=== PATIENT | female | born 1940 | race Caucasian/White ===

== ENCOUNTER → 2018-06-02 11:12 | Outpatient (CLI) | payer OTHER, SELFPAY ==
--- NOTE | 2018-06-02 | DI.MG.S_ITS ---
BILATERAL DIGITAL SCREENING MAMMOGRAM 3D/2D WITH CAD: 06/02/2018 CLINICAL: Routine screening. Comparison is made to exams dated: 04/27/2017 mammogram, 04/25/2016 mammogram, and 02/19/2015 mammogram - [facility]. The tissue of both breasts is heterogeneously dense. This may lower the sensitivity of mammography. Current study was also evaluated with a Computer Aided Detection (CAD) system. No significant masses, calcifications, or other findings are seen in either breast. There has been no significant interval change. IMPRESSION: NEGATIVE There is no mammographic evidence of malignancy. A 1 year screening mammogram is recommended. This exam was interpreted at Station ID: [id number]. NOTE: For mammograms, a report in lay terms will be sent to the patient. Approximately 15% of breast malignancies will not be visualized mammographically. In the management of a palpable breast mass, a negative mammogram must not discourage biopsy of a clinically suspicious lesion. Electronically Signed By: Hernan gonzales/dm:06/02/2018 19:35:14 letter sent: Normal Exam ACR BI-RADS Category 1: Negative 3341F
== END ==
PROVIDERS: Visit Provider Internal Medicine
DX: Z12.31 Encounter for screening mammogram for malignant neoplasm of breast (principal)
CPT/HCPCS: 77063; 77067

== ENCOUNTER → 2018-06-17 09:36 | Outpatient (CLI) | payer OTHER, SELFPAY ==
[2018-06-17 10:55] LABS: Alanine Aminotransferase 27 IU/L (9-52); Albumin 4.1 g/dL (3.5-5.0); Albumin Globulin Ratio 1.4 (1.0-2.8); Alkaline Phosphatase 67 U/L (38-126); Aspartate Aminotransferase 31 IU/L (14-36); Bilirubin Total 0.6 mg/dL (0.2-1.3); Blood Urea Nitrogen 18 mg/dL (7-17); Calcium 9.5 mg/dL (8.4-10.2); Carbon Dioxide 29 mmol/L (22-32); Chloride 104 mmol/L (98-107); Estimated Glomerular Filt Rate 53.9 mL/min (>60); Globulin 2.9 g/dL (1.7-4.1); Glucose 96 mg/dL (80-110); HEMOLYSIS < 15 (0-50); Magnesium 1.8 mg/dL (1.6-2.3); Potassium 4.2 mmol/L (3.4-5.1); Sodium 144 mmol/L (137-145)
[2018-06-21 08:56] LABS: Lipoprofile NMR SEE SEPARATE REPORTS
== END ==
PROVIDERS: Visit Provider Specialist
DX: E78.2 Mixed hyperlipidemia (principal); I47.1 Supraventricular tachycardia
CPT/HCPCS: 36415; 80053; 83704; 83735

== ENCOUNTER → 2019-01-25 13:34 | Outpatient (CLI) | payer MEDICARE, SELFPAY | PROVIDERS: PCP Internal Medicine; Visit Provider Internal Medicine | DX: M85.831 Other specified disorders of bone density and structure, right forearm (principal); Z78.0 Asymptomatic menopausal state; Z90.722 Acquired absence of ovaries, bilateral; R29.890 Loss of height | CPT/HCPCS: 77080 ==

== ENCOUNTER → 2019-03-14 09:02 | Outpatient (CLI) | payer MEDICARE, SELFPAY ==
--- NOTE | 2019-03-14 | DI.ECHO.S_ITS ---
[place] +---------+ [facility] +---------+ : : [address] : [address] : : : : [id number] : : : : Phone: [phone] +---------+ Echocardiogram Report + + :Name: JAIRO FARMER Study Date: 03/14/2019 Height: 63 in : :[facility] Weight: 121 lb : : Gender: Female BSA: 1.6 m2 : :: 1940 Age: 78 yrs BP: 130/76 mmHg: :Reason For Study: Mitral Valve- Regurgitation : : Performed By: Paula Benjamin : :Referring: LUIS CEDILLO : + + Interpretation Summary Left ventricular systolic function is normal without focal wall motion abnormalities with the ejection fraction visually estimated to be 60-65%. Left ventricular size is at the upper limits of normal but is unchanged compared to the previous study. There has been no significant change since the previous study. The right ventricle is normal in size and function and appears unchanged compared to the previous study. The right ventricular systolic pressure is estimated to be at least 29 mmHg based on an estimated right atrial pressure of 3 mm Hg. Comparison with the previous study is not possible because this was unable to be assessed on the previous study. The left atrium is severely dilated and the right atrium is borderline dilated. Both atria have mildly increased in size since the prior echo exam. The mitral valve leaflets appear moderately thickened with a flat closure plane and borderline bileaflet mitral valve prolapse with probable moderate to severe mitral regurgitation that appears unchanged compared to the previous study. There is mild tricuspid regurgitation that is slightly more prominent compared to the previous study. There is no other significant valvular heart disease. The ascending aorta is mildly enlarged and measures slightly larger compared to the previous study. Procedure: A two-dimensional transthoracic echocardiogram with color flow and Doppler was performed. The study quality was technically good. Comparison is made with the echocardiogram of 10-16-17. The patient was in normal sinus rhythm during the exam. Left Ventricle: Left ventricular size is at the upper limits of normal. This is unchanged compared to the previous study. Left ventricular wall thickness is normal. Left ventricular systolic function is normal without focal wall motion abnormalities. The ejection fraction is estimated to be 60-65%. Diastolic function could not be accurately assessed due to unobtainable data. There has been no significant change since the previous study. Right Ventricle: The right ventricle is normal in size and function. This is unchanged compared to the previous study. Atria: The left atrium is severely dilated. Both atria have mildly increased in size since the prior echo exam. The right atrium is borderline dilated. The interatrial septum is intact with no evidence for an atrial septal defect. Mitral Valve: The mitral valve leaflets appear moderately thickened, but open well. There is a flat closure plane of the the mitral valve leaflets. There is borderline mitral valve prolapse. There is moderate to severe mitral regurgitation. This is unchanged compared to the previous study. Aortic Valve: The aortic valve is trileaflet. The aortic valve opens well. No aortic regurgitation is present. Tricuspid Valve: The tricuspid valve leaflets are thin and pliable. There is mild tricuspid regurgitation. This is slightly more prominent compared to the previous study. The right ventricular systolic pressure is estimated to be at least 29 mmHg based on an estimated right atrial pressure of 3 mm Hg. Comparison with the previous study is not possible because this was unable to be assessed on the previous study. Pulmonic Valve: The pulmonic valve is normal in structure and function. There is trace pulmonic regurgitation. There is no other significant valvular heart disease. Great Vessels: The aortic root is normal size. The ascending aorta is mildly enlarged. This is slightly larger compared to the previous study. The aortic arch is normal in size. The IVC is of normal diameter and collapses greater than 50% with a sniff. This suggests a low right atrial pressure of 3 mm Hg. Pericardium/ Pleura There is no pericardial effusion. There is no pleural effusion. MMode/2D Measurements & Calculations LVIDd: 5.4 cm Ao root diam: 3.3 cm LVIDs: 3.8 cm Aortic Jxn: 2.6 cm FS: 30.2 % asc Aorta Diam: 3.6 cm EPSS: 0.78 cm Ao Arch Diam (Prox Trans): 2.6 cm IVSd: 0.95 cm LVPWd: 0.94 cm LV sevilla. diameter/BSA (cm/m^2): 3.5 LV sys. diameter/BSA (cm/m^2): 2.4 LA dimension: 4.7 cm RA long axis: 5.4 cm LA A2 area: 33.3 cm2 RA area: 17.6 cm2 LA A4 area: 34.4 cm2 RA vol: 48.5 ml LA length (vol): 7.2 cm RA : 31.1 ml/m2 LA vol: 134.9 ml IVC diam: 1.3 cm LA vol index: 86.3 ml/m2 RVDd major: 5.7 cm RVD1 (basal): 2.7 cm RVD2 (mid): 2.7 cm Doppler Measurements & Calculations Ao V2 max: 207.4 cm/sec Med Peak E' Prince: 5.1 cm/sec Ao V2 mean: 113.9 cm/sec Lat Peak E' Prince: 4.7 cm/sec Ao max P.2 mmHg MR ERO: 0.27 cm2 Ao mean P.6 mmHg Ao V2 VTI: 34.7 cm TR max prince: 254.0 cm/sec MR flow rate: 156.3 cm3/sec TR max P.8 mmHg MR PISA radius: 0.80 cm PA V2 max: 57.5 cm/sec PA V2 mean: 36.7 cm/sec PA mean P.66 mmHg PA Accel Time: 0.09 sec Reading Physician:CRISSY
== END ==
PROVIDERS: PCP Internal Medicine; Visit Provider Specialist
DX: I08.1 Rheumatic disorders of both mitral and tricuspid valves (principal); I77.89 Other specified disorders of arteries and arterioles
CPT/HCPCS: 93306

== ENCOUNTER → 2019-03-25 07:30 | Outpatient (CLI) | payer MEDICARE, SELFPAY ==
[2019-03-25 08:59] LABS: Alanine Aminotransferase 16 IU/L (9-52); Albumin 4.2 g/dL (3.5-5.0); Albumin Globulin Ratio 1.4 (1.0-2.8); Alkaline Phosphatase 70 U/L (38-126); Aspartate Aminotransferase 30 IU/L (14-36); BUN Creatinine Ratio 23.8 (6-22); Bilirubin Total 0.6 mg/dL (0.2-1.3); Blood Urea Nitrogen 19 mg/dL (7-17); Calcium 9.7 mg/dL (8.4-10.2); Carbon Dioxide 30 mmol/L (22-32); Chloride 102 mmol/L (98-107); Estimated Glomerular Filt Rate > 60.0 mL/min (>60); Glucose 91 mg/dL (80-110); HEMOLYSIS < 15 (0-50); Sodium 139 mmol/L (137-145); Total Protein 7.2 g/dL (6.3-8.2)
[2019-03-28 11:29] LABS: Lipoprofile NMR SEE SEPERATE REPORT
== END ==
PROVIDERS: PCP Internal Medicine; Visit Provider Specialist
DX: E78.2 Mixed hyperlipidemia (principal)
CPT/HCPCS: 36415; 80053; 83704

== ENCOUNTER → 2019-06-10 10:54 | Outpatient (CLI) | payer MEDICARE, SELFPAY ==
--- NOTE | 2019-06-10 | DI.MG.S_ITS ---
BILATERAL DIGITAL SCREENING MAMMOGRAM 3D/2D WITH CAD: 06/10/2019 CLINICAL: Routine screening. Comparison is made to exams dated: 06/02/2018 mammogram, 04/27/2017 mammogram, 04/25/2016 mammogram, 02/19/2015 mammogram, 01/27/2014 mammogram, and 01/26/2013 mammogram - [facility]. The tissue of both breasts is heterogeneously dense. This may lower the sensitivity of mammography. Current study was also evaluated with a Computer Aided Detection (CAD) system. No significant masses, calcifications, or other findings are seen in either breast. There has been no significant interval change. IMPRESSION: NEGATIVE There is no mammographic evidence of malignancy. A 1 year screening mammogram is recommended. This exam was interpreted at Station ID: [id number]. NOTE: For mammograms, a report in lay terms will be sent to the patient. Approximately 15% of breast malignancies will not be visualized mammographically. In the management of a palpable breast mass, a negative mammogram must not discourage biopsy of a clinically suspicious lesion. Electronically Signed By: Kar bronson/dm:06/10/2019 12:19:34 letter sent: Normal Exam ACR BI-RADS Category 1: Negative 3341F
== END ==
PROVIDERS: PCP Internal Medicine; Visit Provider Internal Medicine
DX: Z12.31 Encounter for screening mammogram for malignant neoplasm of breast (principal)
CPT/HCPCS: 77063; 77067

== ENCOUNTER → 2019-12-07 09:35 | Outpatient (CLI) | payer MEDICARE, SELFPAY ==
[2019-12-07 11:34] LABS: Alanine Aminotransferase 16 IU/L (<35); Albumin 4.3 g/dL (3.5-5.0); Albumin Globulin Ratio 1.5 (1.0-2.8); Alkaline Phosphatase 75 U/L (38-126); Aspartate Aminotransferase 31 IU/L (14-36); BUN Creatinine Ratio 22.5 (6-22); Bilirubin Total 0.6 mg/dL (0.2-1.3); Blood Urea Nitrogen 18 mg/dL (7-17); Calcium 9.9 mg/dL (8.4-10.2); Carbon Dioxide 28 mmol/L (22-32); Chloride 102 mmol/L (98-107); Estimated Glomerular Filt Rate > 60.0 mL/min (>60); Globulin 2.9 g/dL (1.7-4.1); Glucose 92 mg/dL (80-110); HEMOLYSIS < 15 (0-50); Magnesium 2.1 mg/dL (1.6-2.3); Potassium 5.2 mmol/L (3.4-5.1); Sodium 141 mmol/L (137-145); Total Protein 7.2 g/dL (6.3-8.2)
[2019-12-09 12:21] LABS: Lipoprofile NMR SEE SEPARATE REPORTS
== END ==
PROVIDERS: PCP Internal Medicine; Referring Provider Specialist; Visit Provider Specialist
DX: I47.1 Supraventricular tachycardia (principal); I10 Essential (primary) hypertension; E78.2 Mixed hyperlipidemia
CPT/HCPCS: 36415; 80053; 83704; 83735

== ENCOUNTER → 2019-12-20 13:20 | Outpatient (CLI) | payer MEDICARE, SELFPAY ==
--- NOTE | 2019-12-20 | DI.ECHO.S_ITS ---
[place] +---------+ Hospital +---------+ : : [address] : [address] : : : : [id number] : : : : Phone: [phone] : : [phone] +---------+ Echocardiogram Report + + :Name: JAIRO FARMER Study Date: 12/20/2019 Height: 63 in : :[facility] Weight: 123 lb : : Gender: Female BSA: 1.6 m2 : :: 1940 Age: 79 yrs BP: 126/84 mmHg: :Reason For Study: MITRAL INSUFFICIENCY : :Ordering Physician: Luis : :Jayson Performed By: Betsy Haile : :Referring: LUIS CEDILLO : + + Interpretation Summary Left ventricular systolic function is normal without focal wall motion abnormalities with the ejection fraction estimated to be 65-70%. Left ventricular size is at the upper limits of normal with an estimated left ventricular end diastolic volume of 79 ml and is likely unchanged to perhaps slightly smaller compared to the previous study. There has been no significant change since the previous study. The right ventricle is normal in size and function and is unchanged compared to the previous study. Pulmonary artery pressures cannot be estimated because of the lack of a measurable TR jet velocity but the IVC suggests a CVP of around 3 mmHg. The left atrium is severely dilated but measures slightly smaller compared to the previous study. The right atrium is borderline dilated and is unchanged. The mitral valve leaflets appear moderately thickened with mild bileaflet mitral valve prolapse that appears unchanged from the previous study. There is moderate to severe mitral regurgitation that is unchanged compared to the previous study. 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 There is no other significant valvular heart disease. The ascending aorta is mildly enlarged but is unchanged compared to the previous study. Procedure: The study quality was technically adequate. A two-dimensional transthoracic echocardiogram with color flow and Doppler was performed. Comparison is made with the echocardiogram of 03/14/2019. The patient was in sinus bradycardia with heart rates between 56-64 bpm during the exam. Left Ventricle: Left ventricular size is at the upper limits of normal. The estimated left ventricular end diastolic volume is 79 ml. This is Unchanged to perhaps slightly smaller compared to the previous study. There is normal left ventricular wall thickness. Left ventricular systolic function is normal without focal wall motion abnormalities. The ejection fraction is estimated to be 65-70%. Diastolic function could not be accurately assessed due to confounding valvular disease. There has been no significant change since the previous study. Right Ventricle: The right ventricle is normal in size and function. This is unchanged compared to the previous study. Atria: The left atrium is severely dilated. This is But slightly smaller compared to the previous study. The right atrium is borderline dilated. This is unchanged compared to the previous study. A prominent eustachian valve is noted. Chiari network (normal variant) is noted. The interatrial septum is intact with no evidence for an atrial septal defect. There is no Doppler evidence for an interatrial shunt. Mitral Valve: The mitral valve leaflets appear moderately thickened, but open well. The mitral valve leaflets are slightly calcified. There continues to be mild bileaflet mitral valve prolapse that appears unchanged from the previous study. There is moderate to severe mitral regurgitation. This is unchanged compared to the previous study. 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 Aortic Valve: The aortic valve is trileaflet. The aortic valve is slightly calcified. The aortic valve opens well. There is no aortic valve stenosis. No aortic regurgitation is present. Tricuspid Valve: The tricuspid valve is normal in structure and function. There is a trace or physiologic amount of tricuspid regurgitation. Pulmonary artery pressures cannot be estimated because of the lack of a measurable TR jet velocity but the IVC suggests a CVP of around 3 mmHg. Pulmonic Valve: The pulmonic valve is normal in structure and function. There is trace pulmonic regurgitation. There is no other significant valvular heart disease. Great Vessels: The aortic root is normal size. The ascending aorta is mildly enlarged. This is unchanged compared to the previous study. The IVC is of normal diameter and collapses greater than 50% with a sniff. This suggests a low right atrial pressure of 3 mm Hg. Pericardium/ Pleura There is no pericardial effusion. There is no pleural effusion. MMode/2D Measurements & Calculations LVIDd: 5.1 cm LVOT diam: 2.0 cm LVIDs: 3.3 cm Ao root diam: 3.1 cm FS: 34.4 % asc Aorta Diam: 3.5 cm EPSS: 0.93 cm Ao Arch Diam (Prox Trans): 2.7 cm IVSd: 0.83 cm LVPWd: 1.0 cm LV sevilla. diameter/BSA (cm/m^2): 3.2 LV sys. diameter/BSA (cm/m^2): 2.1 LA A2 area: 25.5 cm2 RA long axis: 5.3 cm LA A4 area: 26.2 cm2 RA area: 17.1 cm2 LA length (vol): 6.3 cm RA vol: 46.5 ml LA vol: 90.3 ml RA : 29.5 ml/m2 LA vol index: 57.4 ml/m2 IVC diam: 1.3 cm RVD1 (basal): 2.7 cm TAPSE: 2.8 cm Doppler Measurements & Calculations Ao V2 max: 144.2 cm/sec LVOT Max Prince: 100.7 cm/sec Ao V2 mean: 86.4 cm/sec LV V1 max P.1 mmHg Ao max P.3 mmHg LV V1 VTI: 16.7 cm Ao mean P.6 mmHg DALTON(I,D): 2.3 cm2 Ao V2 VTI: 22.4 cm DALTON(V,D): 2.2 cm2 sev ratio: 0.75 DALTON indexed to BSA (cm^2/m^2): 1.5 MV E max prince: 70.7 cm/sec TR max prince: 202.6 cm/sec MV A max prince: 53.7 cm/sec TR max P.4 mmHg MV E/A: 1.3 PA V2 max: 55.4 cm/sec Med Peak E' Prince: 5.7 cm/sec PA V2 mean: 38.1 cm/sec E/E' med: 12.4 PA mean P.66 mmHg Lat Peak E' Prince: 9.7 cm/sec PA Accel Time: 0.05 sec E/E' lat: 7.3 E/e' average: 9.9 MV dec time: 0.34 sec MV P1/2t: 100.9 msec MVA(VTI): 1.6 cm2 MR ERO: 0.24 cm2 MV V2 mean: 47.4 cm/sec MV P1/2t max prince: 70.8 cm/sec MV mean P.0 mmHg MVA(P1/2t): 2.2 cm2 MV V2 VTI: 31.7 cm MR PISA: 4.0 cm2 SV(LVOT): 52.3 ml MR flow rate: 146.8 cm3/sec MR PISA radius: 0.79 cm Reading Physician:CRISSY
== END ==
PROVIDERS: PCP Internal Medicine; Referring Provider Physician Assistant Medical; Visit Provider Specialist
DX: I34.0 Nonrheumatic mitral (valve) insufficiency (principal); I77.89 Other specified disorders of arteries and arterioles
CPT/HCPCS: 93306

== ENCOUNTER → 2020-07-03 15:58 | Outpatient (CLI) | payer MEDICARE, SELFPAY ==
--- NOTE | 2020-07-03 16:02 | DI.MG.S_ITS ---
BILATERAL DIGITAL SCREENING MAMMOGRAM 3D/2D WITH CAD: 07/03/2020 CLINICAL: Routine screening. Family history of breast cancer. Comparison is made to exams dated: 06/10/2019 mammogram, 06/02/2018 mammogram, 04/27/2017 mammogram, 04/25/2016 mammogram, 02/19/2015 mammogram, and 01/27/2014 mammogram - [facility]. The tissue of both breasts is heterogeneously dense. This may lower the sensitivity of mammography. Current study was also evaluated with a Computer Aided Detection (CAD) system. No significant masses, calcifications, or other findings are seen in either breast. There has been no significant interval change. IMPRESSION: NEGATIVE There is no mammographic evidence of malignancy. A 1 year screening mammogram is recommended. This exam was interpreted at Station ID: [id number]. NOTE: For mammograms, a report in lay terms will be sent to the patient. Approximately 15% of breast malignancies will not be visualized mammographically. In the management of a palpable breast mass, a negative mammogram must not discourage biopsy of a clinically suspicious lesion. Electronically Signed By: Duc Carrasquillo M.D., jr/dm:07/03/2020 16:39:44 letter sent: Normal Exam ACR BI-RADS Category 1: Negative 3341F
== END ==
PROVIDERS: PCP Internal Medicine; Referring Provider Internal Medicine; Visit Provider Internal Medicine
DX: Z12.31 Encounter for screening mammogram for malignant neoplasm of breast (principal); Z80.3 Family history of malignant neoplasm of breast
CPT/HCPCS: 77063; 77067

== ENCOUNTER → 2020-09-11 08:54 | Outpatient (CLI) | payer MEDICARE, SELFPAY ==
[2020-09-11 10:37] LABS: Alanine Aminotransferase 16 IU/L (<35); Albumin Globulin Ratio 1.5 (1.0-2.8); Alkaline Phosphatase 77 U/L (38-126); Aspartate Aminotransferase 28 IU/L (14-36); BUN Creatinine Ratio 26.1 (6-22); Bilirubin Total 0.6 mg/dL (0.2-1.3); Blood Urea Nitrogen 24 mg/dL (7-17); Calcium 9.4 mg/dL (8.4-10.2); Carbon Dioxide 31 mmol/L (22-32); Chloride 104 mmol/L (98-107); Globulin 2.7 g/dL (1.7-4.1); Glucose 85 mg/dL (80-110); HEMOLYSIS < 15 (0-50); Potassium 4.4 mmol/L (3.4-5.1); Sodium 137 mmol/L (137-145); Total Protein 6.7 g/dL (6.3-8.2)
== END ==
PROVIDERS: PCP Internal Medicine; Referring Provider Specialist; Visit Provider Physician Assistant Medical
DX: E78.2 Mixed hyperlipidemia (principal)
CPT/HCPCS: 36415; 80053; 80061; 83704

== ENCOUNTER → 2021-06-12 07:59 | Outpatient (CLI) | payer MEDICARE, SELFPAY ==
[2021-06-12 09:18] LABS: Alanine Aminotransferase 17 IU/L (<35); Albumin 4.1 g/dL (3.5-5.0); Albumin Globulin Ratio 1.6 (1.0-2.8); Alkaline Phosphatase 76 U/L (38-126); Aspartate Aminotransferase 31 IU/L (14-36); BUN Creatinine Ratio 26.2 (6-22); Bilirubin Total 0.5 mg/dL (0.2-1.3); Blood Urea Nitrogen 22 mg/dL (7-17); Calcium 9.5 mg/dL (8.4-10.2); Carbon Dioxide 29 mmol/L (22-32); Chloride 103 mmol/L (98-107); Estimated Glomerular Filt Rate > 60.0 mL/min (>60); Globulin 2.6 g/dL (1.7-4.1); Glucose 87 mg/dL (80-110); HEMOLYSIS < 15 (0-50); Potassium 4.5 mmol/L (3.4-5.1); Sodium 138 mmol/L (137-145); Total Protein 6.7 g/dL (6.3-8.2)
[2021-06-14 13:38] LABS: Cholesterol, Total 192 mg/dL (100-199); HDL-Cholesterol 83 mg/dL (>39); HDL-Particle (Total) 40.5 umol/L (>=30.5); LDL Particle 829 nmol/L (<1000); LDL Size 21.6 nm (>20.5); LDL-Cholsterol 99 mg/dL (0-99); LP-IR Score <25 (<=45); Small LDL- Particle <90 nmol/L (<=527); Triglycerides 55 mg/dL (0-149)
== END ==
PROVIDERS: PCP Internal Medicine; Referring Provider Physician Assistant Medical; Visit Provider Physician Assistant Medical
DX: E78.2 Mixed hyperlipidemia (principal)
CPT/HCPCS: 36415; 80053; 80061; 83704

== ENCOUNTER → 2021-06-24 09:45 | Outpatient (CLI) | payer MEDICARE, SELFPAY ==
--- NOTE | 2021-06-24 09:47 | DI.ECHO.S_ITS ---
[facility] +---------+ Hospital +---------+ : : [address] : [address] : : : : [id number] : : : : Phone: [phone] : : [phone] +---------+ Echocardiogram Report + + :Name: JAIRO FARMER Study Date: 06/24/2021 Height: 62 in : :[facility] ReadingLocation: Weight: 125 lb : : Gender: Female BSA: 1.6 m2 : :: 1940 Age: 80 yrs BP: 152/88 mmHg: :Reason For Study: Mitral Valve- Regurgitation : :Ordering Physician: NGUYEN, : :LUIS Performed By: Derek Guerra : :Referring: LUIS CEDILLO : + + Interpretation Summary Left ventricular systolic function remains normal with an estimated ejection fraction of 60 to 65% without any focal wall motion abnormality and appears slightly less dynamic compared to the previous exam. There is likely borderline left ventricular enlargement but volumetric analysis was not performed, yet there visually appears to be no significant change from the previous exam. Wall thickness remains normal. Diastolic function remains challenging to assess but there is no evidence for increased filling pressures or significant change from the previous exam. The right ventricle appears normal and unchanged from the previous exam. Right ventricular systolic pressure cannot be estimated but CVP is likely around 3 mmHg. There is severe left atrial enlargement, likely unchanged from the previous exam. Right atrial size is normal at 13.9 mL/mA?, likely smaller compared to the previous study. There continues to be moderate thickening of the mitral valve leaflets with bileaflet prolapse, posterior leaflet prolapse more prominent than the anterior leaflet, with probable moderate to severe mitral regurgitation that is likely unchanged from the previous exam. While ERO was not calculated, the PiSA radius is smaller at 0.64 cm compared to 0.79 cm previously. There continues to be slight late systolic flow reversal in the pulmonary veins that remains unchanged from the previous study. There is no other significant valvular abnormality. The ascending aorta remains mildly enlarged but unchanged from the previous exam. Procedure: A two-dimensional transthoracic echocardiogram with color flow and Doppler was performed. The study quality was technically adequate. Comparison is made with the echocardiogram of 12/20/2019. Left Ventricle: The left ventricle is borderline dilated. Left ventricular wall thickness is normal. This is likely unchanged compared to the previous study. Left ventricular systolic function appears normal without focal wall motion abnormalities. The ejection fraction is estimated to be 60-65%. This is slightly less dynamic compared to the previous study. Diastolic function could not be accurately assessed due to confounding valvular disease. This is unchanged compared to the previous study. Right Ventricle: The right ventricle is normal in size and function. This is unchanged compared to the previous study. Atria: The left atrium is severely dilated. This is unchanged compared to the previous study. Right atrial size is normal. Right atrial volume index is 13.9 mL/mA?. The right atrium has mildly decreased in size since the prior echo exam. There is no Doppler evidence for an interatrial shunt. Mitral Valve: The mitral valve leaflets appear moderately thickened, but open well. There is mild mitral valve prolapse. There is moderate to severe mitral regurgitation. This is unchanged compared to the previous study. Aortic Valve: There is mild aortic valve sclerosis. The aortic valve opens well. There is no aortic valve stenosis. No aortic regurgitation is present. Tricuspid Valve: The tricuspid valve is normal in structure and function. There is trace tricuspid regurgitation. Pulmonary artery pressures cannot be estimated because of the lack of a measurable TR jet velocity but the IVC suggests a CVP of around 3 mmHg. Pulmonic Valve: The pulmonic valve is normal in structure and function. There is no pulmonic valvular regurgitation. Great Vessels: The aortic root is normal size. The ascending aorta is mildly enlarged. This is unchanged compared to the previous study. The IVC is of normal diameter and collapses greater than 50% with a sniff. This suggests a low right atrial pressure of 3 mm Hg. Pericardium/ Pleura There is no pericardial effusion. MMode/2D Measurements & Calculations LVIDd: 5.6 cm LVOT diam: 1.9 cm LVIDs: 3.6 cm Ao root diam: 2.9 cm FS: 35.7 % asc Aorta Diam: 3.6 cm IVSd: 0.90 cm LVPWd: 0.90 cm LV sevilla. diameter/BSA (cm/m^2): 3.6 LV sys. diameter/BSA (cm/m^2): 2.3 LA dimension: 3.7 cm RA long axis: 5.0 cm LA A2 area: 23.2 cm2 IVC diam: 1.3 cm LA A4 area: 31.5 cm2 LA length (vol): 6.6 cm LA vol: 94.1 ml LA vol index: 60.1 ml/m2 TAPSE_phl: 2.3 cm Doppler Measurements & Calculations Ao V2 max: 159.0 cm/sec LVOT Max Prince: 87.5 cm/sec Ao V2 mean: 103.0 cm/sec LV V1 max P.1 mmHg Ao max P.0 mmHg LV V1 VTI: 18.3 cm Ao mean P.0 mmHg DALTON(I,D): 1.8 cm2 Ao V2 VTI: 28.4 cm DALTON(V,D): 1.6 cm2 sev ratio: 0.64 DALTON indexed to BSA (cm^2/m^2): 1.2 MV E max prince: 58.3 cm/sec PA V2 max: 71.7 cm/sec MV A max prince: 53.1 cm/sec PA V2 mean: 52.0 cm/sec MV E/A: 1.1 PA mean P.0 mmHg Med Peak E' Prince: 6.8 cm/sec PA pr(Accel): 58.8 mmHg E/E' med: 8.6 Lat Peak E' Prince: 9.9 cm/sec E/E' lat: 5.9 E/e' average: 7.3 MV dec time: 0.61 sec MVA(VTI): 1.6 cm2 MV V2 mean: 53.9 cm/sec MR VTI: 189.0 cm MV mean P.3 mmHg MV V2 VTI: 33.4 cm MR PISA: 2.6 cm2 SV(LVOT): 51.9 ml MR PISA radius: 0.64 cm AV VR_phl: 0.55 MV P1/2t-pr_phl: 179.0 msec DALTON(VTI)/BSA_phl: 1.2 Reading Physician:10:23 AM
== END ==
PROVIDERS: PCP Internal Medicine; Referring Provider Specialist; Visit Provider Specialist
DX: I08.0 Rheumatic disorders of both mitral and aortic valves (principal); I77.89 Other specified disorders of arteries and arterioles
CPT/HCPCS: 93306

== ENCOUNTER → 2021-08-03 09:33 | Outpatient (CLI) | payer MEDICARE, SELFPAY ==
--- NOTE | 2021-08-03 | DI.MG.S_ITS ---
BILATERAL DIGITAL SCREENING MAMMOGRAM 3D/2D WITH CAD: 08/03/2021 CLINICAL: Routine screening. Family history of breast cancer. Comparison is made to exams dated: 07/03/2020 mammogram, 06/10/2019 mammogram, and 06/02/2018 mammogram - [facility]. The tissue of both breasts is heterogeneously dense. This may lower the sensitivity of mammography. Current study was also evaluated with a Computer Aided Detection (CAD) system. No significant masses, calcifications, or other findings are seen in either breast. There has been no significant interval change. IMPRESSION: NEGATIVE There is no mammographic evidence of malignancy. A 1 year screening mammogram is recommended. This exam was interpreted at Station ID: [id number]. NOTE: For mammograms, a report in lay terms will be sent to the patient. Approximately 15% of breast malignancies will not be visualized mammographically. In the management of a palpable breast mass, a negative mammogram must not discourage biopsy of a clinically suspicious lesion. Electronically Signed By: Nellie mendez/dm:08/05/2021 09:35:16 letter sent: Normal Exam ACR BI-RADS Category 1: Negative 3341F
== END ==
PROVIDERS: PCP Internal Medicine; Referring Provider Internal Medicine; Visit Provider Internal Medicine
DX: Z12.31 Encounter for screening mammogram for malignant neoplasm of breast (principal); Z80.3 Family history of malignant neoplasm of breast
CPT/HCPCS: 77063; 77067

== ENCOUNTER → 2022-05-21 09:35 | Outpatient (CLI) | payer MEDICARE, OTHER, SELFPAY ==
--- NOTE | 2022-05-21 | DI.US.S_ITS ---
PROCEDURE: US ABDOMEN LIMITED INDICATIONS: ELEVATED LFT, DIARRHEA TECHNIQUE: Real-time scanning was performed of the abdominal and retroperitoneal organs, with image documentation. COMPARISON: [facility], CT, ABDOMEN W&WO CONTRAST, 10/30/2016, 9:21. FINDINGS: Liver: Liver is normal in size and homogeneous in echotexture. Gallbladder: Distended. Gallbladder sludge. No gallbladder wall thickening or pericholecystic fluid. Biliary ducts: Intrahepatic bile ducts are dilated. Extrahepatic bile duct caliber measures 12.3 mm. Normal is 6-7 mm or less in diameter. Pancreas: Suboptimally visualized. There is a 1.2 x 1.9 x 2.5 cm hypoechoic structure in the area of the pancreatic head. Miscellaneous: No free abdominal fluid. IMPRESSION: 1. A 1.2 x 1.5 x 2.5 cm hypoechoic structure in the area of the pancreatic head. Cannot rule out a mass or enlarged lymph node. Recommend pancreatic protocol CT or MRI for follow-up evaluation. 2. There is intrahepatic and extrahepatic biliary dilation, suspicious for biliary obstruction. Please correlate with serum bilirubin. MRCP may be helpful for further evaluation. 3. Distended gallbladder. No gallstones or gallbladder wall thickening. There is gallbladder sludge. 4. Pancreas is not well seen. Dictated by: Jacey Carpenter M.D. on 05/21/2022 at 12:51 Approved by: Jacey Carpenter M.D. on 05/21/2022 at 12:57
== END ==
PROVIDERS: PCP Internal Medicine; Referring Provider Internal Medicine
DX: K83.8 Other specified diseases of biliary tract (principal); K82.8 Other specified diseases of gallbladder; R19.7 Diarrhea, unspecified; R79.89 Other specified abnormal findings of blood chemistry
CPT/HCPCS: 76705

== ENCOUNTER 2022-05-21 10:48 | Emergency (ER) | payer MEDICARE, OTHER, SELFPAY ==
[2022-05-21] VITALS (17 sets, daily range): BP systolic 147–188; BP diastolic 79–116; PULSE 59–92; RESP 14; TEMP 36; O2SAT 90–99; BMI 21.2
[2022-05-21 11:30] LABS: Add Manual Diff / Slide Review NO; Basophils Absolute Auto 100 /uL (0-100); Basophils Percent Auto 1.2 % (0-2); Eosinophils Absolute Auto 100 /uL (0-450); Eosinophils Percent Auto 1.7 % (2-4); Hemoglobin 12.3 g/dL (12.0-16.0); Lymphocytes Absolute Auto 2100 /uL (1100-4500); Lymphocytes Percent Auto 24.4 % (25-40); Mean Corpuscular HGB Conc 34.2 % (30-36); Mean Corpuscular Hemoglobin 29.4 PG (26-34); Mean Corpuscular Volume 85.8 fL (80-100); Monocytes Absolute Auto 1100 /uL (0-900); Monocytes Percent Auto 13.2 % (3-14); Neutrophils Absolute Auto 5000 /uL (1500-7000); Neutrophils Percent Auto 59.5 % (50-75); Platelet Count 180 X10^3/uL (150-400); Red Cell Distribution Width 14.5 % (11.6-14.8); White Blood Cell Count 8.4 X10^3/uL (4.5-11.0)
[2022-05-21 11:31] LABS: INR 1.2 (0.9-1.3); Prothrombin Time 13.6 SECONDS (10.1-12.7)
[2022-05-21 11:34] LABS: PTT Partial Thromboplastin Tim 37 SECONDS (26.4-36.2)
[2022-05-21 11:45] LABS: Ammonia (NH3) < 9 umol/L (9-30); HEMOLYSIS < 15 (0-50); Potassium 3.6 mmol/L (3.4-5.1)
[2022-05-21 11:46] LABS: Acetaminophen < 10 ug/mL (10-30); Alanine Aminotransferase 196 IU/L (<35); Albumin 4.1 g/dL (3.5-5.0); Albumin Globulin Ratio 1.3 (1.0-2.8); Alkaline Phosphatase 541 U/L (38-126); Aspartate Aminotransferase 203 IU/L (14-36); BUN Creatinine Ratio 14.5 (6-22); Bilirubin Total 5.6 mg/dL (0.2-1.3); Blood Urea Nitrogen 11 mg/dL (7-17); Carbon Dioxide 26 mmol/L (22-32); Chloride 105 mmol/L (98-107); Estimated Glomerular Filt Rate > 60 mL/min (>60); Ethanol (ETOH) < 10 mg/dL; Globulin 3.2 g/dL (1.7-4.1); Glucose 107 mg/dL (80-110); Lipase 163 U/L (23-300); Sodium 140 mmol/L (137-145); Total Protein 7.3 g/dL (6.3-8.2)
--- NOTE | 2022-05-21 12:38 | ED.NAVMDI ---
HPI - Nausea/Vomiting/Diarrhea <Alina Craig DO - Last Filed: 05/26/22 04:49> General Chief complaint: Nausea/Vomiting/Diarrhea Stated complaint: States Jaundice Time Seen by Provider: 05/21/22 11:18 Source: patient Mode of arrival: Ambulatory Limitations: no limitations History of Present Illness HPI Narrative: This is an 81-year-old female with history of dyslipidemia on atorvastatin, patient presents today for jaundice. She states she is had diarrhea for 3 weeks which she describes as being frequent and persistent. No fevers or chills. No chest pain or shortness of breath. Occasional nausea no vomiting. She has had some abdominal discomfort particularly on the right side. She denies dysuria, urgency or frequency but noted her urine has become quite dark. She noted that her stool sort of orangish in color at times she has not appreciated any melena or hematochezia. Patient noted that she appeared jaundice in the last day. She had an appointment yesterday and had an outpatient ultrasound ordered an outpatient labs obtained. She had the ultrasound done today and presented to the hospital for evaluation. She has consultation with Gastroenterology, Dr. Roldan on May 28 in [place]. She denies any known liver history, she denies frequent or regular Tylenol use, patient has not had any extended travel or new medication changes or alterations in her intake. She states no tobacco, she states 2 or 3 alcoholic drinks weekly at her most, denies illicit. She has never had issues in the past she states she is immunized she believes her hepatitis a and hepatitis-B and has no known contacts with individuals with hepatitis. Related Data Home Medications Medication Instructions Recorded Confirmed conjugated estrogens 0.9 mg tablet 0.9 mg PO QDAY ##0 10/13/16 (Premarin) atorvastatin 40 mg tablet 40 mg PO BEDTIME 05/21/22 05/21/22 Previous Rx's Medication Instructions Recorded hydrocodone 5 mg-acetaminophen 300 1 tab PO Q6HP PRN #20 tabs 10/15/16 mg tablet (Vicodin) cephalexin 500 mg capsule 500 mg PO BID 5 days #10 caps 05/23/22 Allergies Allergy/AdvReac Type Severity Reaction Status Date / Time No Known Allergies Allergy Uncoded 05/21/22 10:44 Review of Systems <DO Erica Hamm Last Filed: 05/26/22 04:49> Review of Systems ROS Unobtainable: All systems reviewed & are unremarkable except as noted in HPI and below Patient History <Alina Craig DO - Last Filed: 05/26/22 04:49> Social History Smoking Status: Never smoker Smoking Status: Never smoker alcohol intake frequency: a few times a week Substance Use Type: does not use Exam <Alina Craig DO - Last Filed: 05/26/22 04:49> Narrative Exam Narrative: GENERAL: Alert and oriented x three, female in mild distress. Patient jaundiced. HEENT: Head normocephalic, atraumatic, EOMI, pupils reactive, face symmetric, moist mucous membranes NECK: Supple, full range of motion CARDIOVASCULAR: Regular rate and rhythm without murmurs, rubs or gallops. RESPIRATORY: Breath sounds equal bilaterally, no wheezes rales or rhonchi. ABDOMEN: Soft, right upper quadrant tenderness. Normoactive bowel sounds all 4 quadrants. No guarding or rebound, rigidity, no mass. : No CVA tenderness EXTREMITIES: Normal range of motion, no clubbing or edema. Neurovascularly intact NEUROLOGICAL: Cranial nerves II through XII grossly intact. Moving all extremities SKIN: Warm, dry, no petechiae, no rashes or lesions. + for jaundice. Initial Vital Signs Initial Vital Signs: Vital Signs Temperature 96.8 F L 05/21/22 10:51 Pulse Rate 78 05/21/22 10:51 Respiratory Rate 14 05/21/22 10:51 Blood Pressure 187/82 H 05/21/22 10:51 Pulse Oximetry 99 05/21/22 10:51 Oxygen Delivery Method 05/21/22 10:51 <Marcela Mckeon DO - Last Filed: 05/23/22 18:28> Initial Vital Signs Initial Vital Signs: Vital Signs Temperature 96.8 F L 05/21/22 10:51 Pulse Rate 78 05/21/22 10:51 Respiratory Rate 14 05/21/22 10:51 Blood Pressure 187/82 H 05/21/22 10:51 Pulse Oximetry 99 05/21/22 10:51 Oxygen Delivery Method 05/21/22 10:51 Course <DO Erica Hamm Last Filed: 05/26/22 04:49> Orders Ordered: Discontinued Medications Ibuprofen (Ibuprofen 400 Mg Tablet) 400 mg PO NOW ONE Stop: 05/21/22 13:49 Last Admin: 05/21/22 14:16 Dose: 400 mg Documented By: MARGOT Reevaluation(s) Reevaluation #1: Patient updated on plan with gastroenterology, she can be seen she notes that she had attempted ERCP in the past and it was quite difficult we discussed that she would likely benefit from attempt again today and they can facilitate next steps for her treatment. We reviewed her return precautions she does not wish to stay for the results of her COVID swab but we did discuss that she can come back for hard copy if she needs. Consultations Consultation #1: Dr. Toth, gastroenterology. Patient can be seen this Thursday for ERCP as an outpatient that would not be able to see her as an inpatient any sooner than this. Patient does appear to be appropriately stable from medical standpoint to be seen as an outpatient. Does ask if patient could have a COVID swab obtained and that it is a high sensitivity PCR for ERCP. They will be happy to see her and arrange her next steps in treatment. Vital Signs Vital signs: Vital Signs - 8 hr 05/21/22 10:51 Temperature 96.8 F L Pulse Rate 78 Respiratory Rate 14 Blood Pressure 187/82 H Pulse Oximetry 99 Oxygen Delivery Method Room Air <Marcela Mckeon DO - Last Filed: 05/23/22 18:28> Orders Ordered: Discontinued Medications Ibuprofen (Ibuprofen 400 Mg Tablet) 400 mg PO NOW ONE Stop: 05/21/22 13:49 Last Admin: 05/21/22 14:16 Dose: 400 mg Documented By: MARGOT Vital Signs Vital signs: Vital Signs - 8 hr 05/21/22 10:51 Temperature 96.8 F L Pulse Rate 78 Respiratory Rate 14 Blood Pressure 187/82 H Pulse Oximetry 99 Oxygen Delivery Method Room Air MDM - Nausea/Vomiting/Diarrhea <Alina Craig, - Last Filed: 05/26/22 04:49> Lab Data Result diagrams: 05/21/22 11:03 05/21/22 11:03 Labs: Lab Results 05/21/22 05/21/22 05/21/22 Range/Units 11:03 11:03 11:03 WBC 8.4 (4.5-11.0) X10^3/uL RBC 4.20 (4.0-5.2) X10^6/uL Hgb 12.3 (12.0-16.0) g/dL Hct 36.0 (36-46) % MCV 85.8 (80-100) fL MCH 29.4 (26-34) PG MCHC 34.2 (30-36) % RDW 14.5 (11.6-14.8) % Plt Count 180 (150-400) X10^3/uL Neut % (Auto) 59.5 (50-75) % Lymph % (Auto) 24.4 L (25-40) % Humphreys % (Auto) 13.2 (3-14) % Eos % (Auto) 1.7 L (2-4) % Baso % (Auto) 1.2 (0-2) % Neut # (Auto) 5000 (5549-4338) /uL Lymph # (Auto) 2100 (8141-7812) /uL Humphreys # (Auto) 1100 H (0-900) /uL Eos # (Auto) 100 (0-450) /uL Baso # (Auto) 100 (0-100) /uL PT (10.1-12.7) SECONDS INR (0.9-1.3) APTT (26.4-36.2) SECONDS Sodium 140 (137-145) mmol/L Potassium 3.6 (3.4-5.1) mmol/L Chloride 105 (98-107) mmol/L Carbon Dioxide 26 (22-32) mmol/L BUN 11 (7-17) mg/dL Creatinine 0.76 (0.52-1.04) mg/dL Estimated GFR > 60 (>60) mL/min BUN/Creatinine Ratio 14.5 (6-22) Glucose 107 (80-110) mg/dL Calcium 9.0 (8.4-10.2) mg/dL Total Bilirubin 5.6 H (0.2-1.3) mg/dL AST 203 H (14-36) IU/L ALT 196 H (<35) IU/L Alkaline Phosphatase 541 H (38-126) U/L Ammonia < 9 L (9-30) umol/L Total Protein 7.3 (6.3-8.2) g/dL Albumin 4.1 (3.5-5.0) g/dL Globulin 3.2 (1.7-4.1) g/dL Albumin/Globulin Ratio 1.3 (1.0-2.8) Lipase 163 (23-300) U/L Urine Color Urine Appearance Urine pH (4.5-8.0) Ur Specific [place] (1.000-1.035) Urine Protein (Negative) Urine Glucose (UA) (Negative) g/dL Urine Ketones (NEGATIVE) Urine Occult Blood (Negative) Urine Nitrate (Negative) Urine Bilirubin (NEGATIVE) Ur Bilirubin Confirm (Negative) Urine Urobilinogen (0.2) E.U./dL Ur Leukocyte Esterase (NEGATIVE) Urine RBC (0-5/HPF) Urine WBC (0-5/HPF) Amorphous Sediment Urine Bacteria (None) Ur Culture Indicated? U Opiates 300ng/mL cut (Negative) Ur Oxycodone Screen (Negative) Urine Methadone Screen (Negative) Acetaminophen (10-30) ug/mL Ur Barbiturates Screen (Negative) U Tricyclic Antidepress (Negative) Ur Phencyclidine Scrn (Negative) Ur Amphetamines Screen (Negative) U Methamphetamines Scrn (Negative) Ur MDMA Scrn (Ecstasy) (Negative) U Benzodiazepines Scrn (Negative) Urine Cocaine Screen (Negative) U Marijuana (THC) Screen (Negative) Ethyl Alcohol ( - 10) mg/dL SARS-CoV-2 (PCR) (Negative) Hepatitis A IgM Ab (Negative) Hep Bs Antigen (Negative) Hep B Core IgM Ab (Negative) Hepatitis C Antibody (0.0-0.9) s/co ratio Hep C Ab Signal/Cutoff (.) 05/21/22 05/21/22 05/21/22 Range/Units 11:03 11:03 11:03 WBC (4.5-11.0) X10^3/uL RBC (4.0-5.2) X10^6/uL Hgb (12.0-16.0) g/dL Hct (36-46) % MCV (80-100) fL MCH (26-34) PG MCHC (30-36) % RDW (11.6-14.8) % Plt Count (150-400) X10^3/uL Neut % (Auto) (50-75) % Lymph % (Auto) (25-40) % Humphreys % (Auto) (3-14) % Eos % (Auto) (2-4) % Baso % (Auto) (0-2) % Neut # (Auto) (6580-2863) /uL Lymph # (Auto) (0699-0771) /uL [place] # (Auto) (0-900) /uL Eos # (Auto) (0-450) /uL Baso # (Auto) (0-100) /uL PT 13.6 H (10.1-12.7) SECONDS INR 1.2 (0.9-1.3) APTT 37 H (26.4-36.2) SECONDS Sodium (137-145) mmol/L Potassium (3.4-5.1) mmol/L Chloride (98-107) mmol/L Carbon Dioxide (22-32) mmol/L BUN (7-17) mg/dL Creatinine (0.52-1.04) mg/dL Estimated GFR (>60) mL/min BUN/Creatinine Ratio (6-22) Glucose (80-110) mg/dL Calcium (8.4-10.2) mg/dL Total Bilirubin (0.2-1.3) mg/dL AST (14-36) IU/L ALT (<35) IU/L Alkaline Phosphatase (38-126) U/L Ammonia (9-30) umol/L Total Protein (6.3-8.2) g/dL Albumin (3.5-5.0) g/dL Globulin (1.7-4.1) g/dL Albumin/Globulin Ratio (1.0-2.8) Lipase (23-300) U/L Urine Color Urine Appearance Urine pH (4.5-8.0) Ur Specific [place] (1.000-1.035) Urine Protein (Negative) Urine Glucose (UA) (Negative) g/dL Urine Ketones (NEGATIVE) Urine Occult Blood (Negative) Urine Nitrate (Negative) Urine Bilirubin (NEGATIVE) Ur Bilirubin Confirm (Negative) Urine Urobilinogen (0.2) E.U./dL Ur Leukocyte Esterase (NEGATIVE) Urine RBC (0-5/HPF) Urine WBC (0-5/HPF) Amorphous Sediment Urine Bacteria (None) Ur Culture Indicated? U Opiates 300ng/mL cut (Negative) Ur Oxycodone Screen (Negative) Urine Methadone Screen (Negative) Acetaminophen < 10 (10-30) ug/mL Ur Barbiturates Screen (Negative) U Tricyclic Antidepress (Negative) Ur Phencyclidine Scrn (Negative) Ur Amphetamines Screen (Negative) U Methamphetamines Scrn (Negative) Ur MDMA Scrn (Ecstasy) (Negative) U Benzodiazepines Scrn (Negative) Urine Cocaine Screen (Negative) U Marijuana (THC) Screen (Negative) Ethyl Alcohol < 10 ( - 10) mg/dL SARS-CoV-2 (PCR) (Negative) Hepatitis A IgM Ab Negative (Negative) Hep Bs Antigen Negative (Negative) Hep B Core IgM Ab Negative (Negative) Hepatitis C Antibody <0.1 (0.0-0.9) s/co ratio Hep C Ab Signal/Cutoff Comment (.) 05/21/22 05/21/22 05/21/22 Range/Units 12:44 12:44 15:30 WBC (4.5-11.0) X10^3/uL RBC (4.0-5.2) X10^6/uL Hgb (12.0-16.0) g/dL Hct (36-46) % MCV (80-100) fL MCH (26-34) PG MCHC (30-36) % RDW (11.6-14.8) % Plt Count (150-400) X10^3/uL Neut % (Auto) (50-75) % Lymph % (Auto) (25-40) % Humphreys % (Auto) (3-14) % Eos % (Auto) (2-4) % Baso % (Auto) (0-2) % Neut # (Auto) (8737-9914) /uL Lymph # (Auto) (5031-2760) /uL Humphreys # (Auto) (0-900) /uL Eos # (Auto) (0-450) /uL Baso # (Auto) (0-100) /uL PT (10.1-12.7) SECONDS INR (0.9-1.3) APTT (26.4-36.2) SECONDS Sodium (137-145) mmol/L Potassium (3.4-5.1) mmol/L Chloride (98-107) mmol/L Carbon Dioxide (22-32) mmol/L BUN (7-17) mg/dL Creatinine (0.52-1.04) mg/dL Estimated GFR (>60) mL/min BUN/Creatinine Ratio (6-22) Glucose (80-110) mg/dL Calcium (8.4-10.2) mg/dL Total Bilirubin (0.2-1.3) mg/dL AST (14-36) IU/L ALT (<35) IU/L Alkaline Phosphatase (38-126) U/L Ammonia (9-30) umol/L Total Protein (6.3-8.2) g/dL Albumin (3.5-5.0) g/dL Globulin (1.7-4.1) g/dL Albumin/Globulin Ratio (1.0-2.8) Lipase (23-300) U/L Urine Color Yellow Urine Appearance Clear Urine pH 5.5 (4.5-8.0) Ur Specific [place] 1.010 (1.000-1.035) Urine Protein Negative (Negative) Urine Glucose (UA) Trace H (Negative) g/dL Urine Ketones Negative (NEGATIVE) Urine Occult Blood 1+ H (Negative) Urine Nitrate Positive H (Negative) Urine Bilirubin 2+ H (NEGATIVE) Ur Bilirubin Confirm Positive H (Negative) Urine Urobilinogen 0.2 (0.2) E.U./dL Ur Leukocyte Esterase Negative (NEGATIVE) Urine RBC 0-1/hpf (0-5/HPF) Urine WBC 0-1/hpf (0-5/HPF) Amorphous Sediment 1+ Urine Bacteria Many (>30) H (None) Ur Culture Indicated? Specimen cultured U Opiates 300ng/mL cut Negative (Negative) Ur Oxycodone Screen Negative (Negative) Urine Methadone Screen Negative (Negative) Acetaminophen (10-30) ug/mL Ur Barbiturates Screen Negative (Negative) U Tricyclic Antidepress Negative (Negative) Ur Phencyclidine Scrn Negative (Negative) Ur Amphetamines Screen Negative (Negative) U Methamphetamines Scrn Negative (Negative) Ur MDMA Scrn (Ecstasy) Negative (Negative) U Benzodiazepines Scrn Negative (Negative) Urine Cocaine Screen Negative (Negative) U Marijuana (THC) Screen Negative (Negative) Ethyl Alcohol ( - 10) mg/dL SARS-CoV-2 (PCR) Negative (Negative) Hepatitis A IgM Ab (Negative) Hep Bs Antigen (Negative) Hep B Core IgM Ab (Negative) Hepatitis C Antibody (0.0-0.9) s/co ratio Hep C Ab Signal/Cutoff (.) Imaging Data US - abdomen: Radiologist's Impression: [address] [address] Ultrasound Report Signed Patient: Ana Carver MR#: [id number] : 1940 Acct:[id number] Age/Sex: 81 / F Date of Service: 05/21/22 Loc: US Accession Number: [id number] ?? Procedure: US abdomen limited Ordering Provider: Carloz Han MD PROCEDURE:? US ABDOMEN LIMITED ? INDICATIONS:? ELEVATED LFT, DIARRHEA ? TECHNIQUE:? Real-time scanning was performed of the abdominal and retroperitoneal organs, with image documentation.? ? COMPARISON:? [facility], CT, ABDOMEN W&WO CONTRAST, 10/30/2016, 9:21. ? FINDINGS:? ? Liver:? Liver is normal in size and homogeneous in echotexture.? Gallbladder:? Distended.? Gallbladder sludge. No gallbladder wall thickening or pericholecystic fluid.? Biliary ducts:? Intrahepatic bile ducts are dilated.? Extrahepatic bile duct caliber measures 12.3 mm.? Normal is 6-7 mm or less in diameter.? Pancreas:? Suboptimally visualized.? There is a 1.2 x 1.9 x 2.5 cm hypoechoic structure in the area of the pancreatic head.? Miscellaneous:? No free abdominal fluid.? ? ? IMPRESSION:? ? 1. A 1.2 x 1.5 x 2.5 cm hypoechoic structure in the area of the pancreatic head.? Cannot rule out a mass or enlarged lymph node.? Recommend pancreatic protocol CT or MRI for follow-up evaluation. ? 2. There is intrahepatic and extrahepatic biliary dilation, suspicious for biliary obstruction.? Please correlate with serum bilirubin.? MRCP may be helpful for further evaluation.? ? 3. Distended gallbladder.? No gallstones or gallbladder wall thickening.? There is gallbladder sludge. ? 4. Pancreas is not well seen.? Dictated by: Jacey Carpenter M.D. on 05/21/2022 at 12:51 ? ? Approved by: Jacey Carpenter M.D. on 05/21/2022 at 12:57?? CT scan - abdomen/pelvis: Radiologist's Impression: [address] [address] [address] Scan Report Signed Patient: Ana Carver MR#: [id number] : 1940 Acct:[id number] Age/Sex: 81 / F Date of Service: 05/21/22 Loc: ED Accession Number: [id number] ?? Procedure: CT abdomen pelvis w con Ordering Provider: Alina Craig D.O. PROCEDURE:? CT ABDOMEN PELVIS W CON multiphase ? INDICATIONS:? mass pancretic head ? TECHNIQUE:? After the administration of intravenous contrast, axial sections acquired from the lung bases to the pubic symphysis.? Coronal and sagittal reformats were performed.? For radiation dose reduction, the following was used:? automated exposure control, adjustment of mA and/or kV according to patient size.? 2 phases were performed. ? COMPARISON:? Same-day ultrasound ? FINDINGS:? Image quality:? Excellent.? ? Lung bases:? Basal atelectasis. Heart:? Cardiomegaly. ? ABDOMEN: Liver:? Unremarkable.? ? Gallbladder:? Distended Biliary ducts:? Moderate dilation throughout the biliary tree Pancreas:? Pancreatic head mass measuring 3.1 x 3.2 cm.? There is upstream pancreatic ductal dilation and atrophy.? The mass encases the portal confluence and is near occlusive.? Less than 180? of contact with the common hepatic artery and SMA. Spleen:? Unremarkable.? ? Adrenal Glands:? Unremarkable.? ? Kidneys and Ureters:? Subcentimeter lesions are too small to characterize. ? Stomach and Bowel:? Incidentally noted malrotation anatomy.? No bowel obstruction.? Diffuse mild colonic wall thickening. Peritoneum:? No abnormal intraperitoneal fluid.? No free air.? ? Ventral Wall: ? No hernias.? Abdominal Nodes:? No lymphadenopathy.? There is congestion around central mesenteric root. Vessels:? Mild atherosclerotic calcifications.? There portal venous varices. ? PELVIS: Pelvic Organs:? Hysterectomy Bladder:? Distended Pelvic Nodes: No enlarged lymph nodes.? Miscellaneous: No hernias are seen. ? ? ? Bones:? Scoliosis and multilevel spondylosis.? L5 on S1 anterolisthesis. ? ? IMPRESSION:? 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 The portal confluence is encased and occluded.? Less than 180? of contact with the SMA and common hepatic artery.? No definite distant metastases at this time.? there is central mesenteric congestion. ? Possible mild diffuse colitis.? ? ? Dictated by: Aldo Harley M.D. on 05/21/2022 at 14:44 ? ? Approved by: Aldo Harley M.D. on 05/21/2022 at 14:53?? [facility] Narrative Medical decision making narrative: This is an 81-year-old female who is had persistent diarrhea for several weeks, she would outpatient ultrasound today but noted her skin color seemed altered so she presents to the ER. Patient does appear jaundiced her bilirubin is elevated as well as her other LFTs, ultrasound shows a potential mass in the pancreas CT was obtained and shows obstructive mass, she has gastroenterology follow up already in place they were contacted they would like to see the patient this Thursday in the next 4 days for ERCP. At this time she is felt appropriate medically stable for discharge in order to have this is an outpatient procedure, return precautions were discussed with the patient. Gastroenterology states they would not be able to get her in sooner for this. Patient and I discussed plan. They did request a COVID swab for the patient which was obtained she defers waiting for the result today. 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 Linda Patient is not evaluated or seen by myself. Reviewing cultures. Urine is positive for E coli pansensitive. Keflex is sent to patient's preferred pharmacy nursing staff to call patient. <Marcela Mckeon, DO - Last Filed: 05/23/22 18:28> Lab Data Labs: Lab Results 05/21/22 05/21/22 05/21/22 Range/Units 11:03 11:03 11:03 WBC 8.4 (4.5-11.0) X10^3/uL RBC 4.20 (4.0-5.2) X10^6/uL Hgb 12.3 (12.0-16.0) g/dL Hct 36.0 (36-46) % MCV 85.8 (80-100) fL MCH 29.4 (26-34) PG MCHC 34.2 (30-36) % RDW 14.5 (11.6-14.8) % Plt Count 180 (150-400) X10^3/uL Neut % (Auto) 59.5 (50-75) % Lymph % (Auto) 24.4 L (25-40) % [place] % (Auto) 13.2 (3-14) % Eos % (Auto) 1.7 L (2-4) % Baso % (Auto) 1.2 (0-2) % Neut # (Auto) 5000 (1293-6439) /uL Lymph # (Auto) 2100 (0010-5289) /uL [place] # (Auto) 1100 H (0-900) /uL Eos # (Auto) 100 (0-450) /uL Baso # (Auto) 100 (0-100) /uL PT (10.1-12.7) SECONDS INR (0.9-1.3) APTT (26.4-36.2) SECONDS Sodium 140 (137-145) mmol/L Potassium 3.6 (3.4-5.1) mmol/L Chloride 105 (98-107) mmol/L Carbon Dioxide 26 (22-32) mmol/L BUN 11 (7-17) mg/dL Creatinine 0.76 (0.52-1.04) mg/dL Estimated GFR > 60 (>60) mL/min BUN/Creatinine Ratio 14.5 (6-22) Glucose 107 (80-110) mg/dL Calcium 9.0 (8.4-10.2) mg/dL Total Bilirubin 5.6 H (0.2-1.3) mg/dL AST 203 H (14-36) IU/L ALT 196 H (<35) IU/L Alkaline Phosphatase 541 H (38-126) U/L Ammonia < 9 L (9-30) umol/L Total Protein 7.3 (6.3-8.2) g/dL Albumin 4.1 (3.5-5.0) g/dL Globulin 3.2 (1.7-4.1) g/dL Albumin/Globulin Ratio 1.3 (1.0-2.8) Lipase 163 (23-300) U/L Urine Color Urine Appearance Urine pH (4.5-8.0) Ur Specific [place] (1.000-1.035) Urine Protein (Negative) Urine Glucose (UA) (Negative) g/dL Urine Ketones (NEGATIVE) Urine Occult Blood (Negative) Urine Nitrate (Negative) Urine Bilirubin (NEGATIVE) Ur Bilirubin Confirm (Negative) Urine Urobilinogen (0.2) E.U./dL Ur Leukocyte Esterase (NEGATIVE) Urine RBC (0-5/HPF) Urine WBC (0-5/HPF) Amorphous Sediment Urine Bacteria (None) Ur Culture Indicated? U Opiates 300ng/mL cut (Negative) Ur Oxycodone Screen (Negative) Urine Methadone Screen (Negative) Acetaminophen (10-30) ug/mL Ur Barbiturates Screen (Negative) U Tricyclic Antidepress (Negative) Ur Phencyclidine Scrn (Negative) Ur Amphetamines Screen (Negative) U Methamphetamines Scrn (Negative) Ur MDMA Scrn (Ecstasy) (Negative) U Benzodiazepines Scrn (Negative) Urine Cocaine Screen (Negative) U Marijuana (THC) Screen (Negative) Ethyl Alcohol ( - 10) mg/dL SARS-CoV-2 (PCR) (Negative) Hepatitis A IgM Ab (Negative) Hep Bs Antigen (Negative) Hep B Core IgM Ab (Negative) Hepatitis C Antibody (0.0-0.9) s/co ratio Hep C Ab Signal/Cutoff (.) 05/21/22 05/21/22 05/21/22 Range/Units 11:03 11:03 11:03 WBC (4.5-11.0) X10^3/uL RBC (4.0-5.2) X10^6/uL Hgb (12.0-16.0) g/dL Hct (36-46) % MCV (80-100) fL MCH (26-34) PG MCHC (30-36) % RDW (11.6-14.8) % Plt Count (150-400) X10^3/uL Neut % (Auto) (50-75) % Lymph % (Auto) (25-40) % [place] % (Auto) (3-14) % Eos % (Auto) (2-4) % Baso % (Auto) (0-2) % Neut # (Auto) (5348-2142) /uL Lymph # (Auto) (6206-4818) /uL [place] # (Auto) (0-900) /uL Eos # (Auto) (0-450) /uL Baso # (Auto) (0-100) /uL PT 13.6 H (10.1-12.7) SECONDS INR 1.2 (0.9-1.3) APTT 37 H (26.4-36.2) SECONDS Sodium (137-145) mmol/L Potassium (3.4-5.1) mmol/L Chloride (98-107) mmol/L Carbon Dioxide (22-32) mmol/L BUN (7-17) mg/dL Creatinine (0.52-1.04) mg/dL Estimated GFR (>60) mL/min BUN/Creatinine Ratio (6-22) Glucose (80-110) mg/dL Calcium (8.4-10.2) mg/dL Total Bilirubin (0.2-1.3) mg/dL AST (14-36) IU/L ALT (<35) IU/L Alkaline Phosphatase (38-126) U/L Ammonia (9-30) umol/L Total Protein (6.3-8.2) g/dL Albumin (3.5-5.0) g/dL Globulin (1.7-4.1) g/dL Albumin/Globulin Ratio (1.0-2.8) Lipase (23-300) U/L Urine Color Urine Appearance Urine pH (4.5-8.0) Ur Specific [place] (1.000-1.035) Urine Protein (Negative) Urine Glucose (UA) (Negative) g/dL Urine Ketones (NEGATIVE) Urine Occult Blood (Negative) Urine Nitrate (Negative) Urine Bilirubin (NEGATIVE) Ur Bilirubin Confirm (Negative) Urine Urobilinogen (0.2) E.U./dL Ur Leukocyte Esterase (NEGATIVE) Urine RBC (0-5/HPF) Urine WBC (0-5/HPF) Amorphous Sediment Urine Bacteria (None) Ur Culture Indicated? U Opiates 300ng/mL cut (Negative) Ur Oxycodone Screen (Negative) Urine Methadone Screen (Negative) Acetaminophen < 10 (10-30) ug/mL Ur Barbiturates Screen (Negative) U Tricyclic Antidepress (Negative) Ur Phencyclidine Scrn (Negative) Ur Amphetamines Screen (Negative) U Methamphetamines Scrn (Negative) Ur MDMA Scrn (Ecstasy) (Negative) U Benzodiazepines Scrn (Negative) Urine Cocaine Screen (Negative) U Marijuana (THC) Screen (Negative) Ethyl Alcohol < 10 ( - 10) mg/dL SARS-CoV-2 (PCR) (Negative) Hepatitis A IgM Ab Negative (Negative) Hep Bs Antigen Negative (Negative) Hep B Core IgM Ab Negative (Negative) Hepatitis C Antibody <0.1 (0.0-0.9) s/co ratio Hep C Ab Signal/Cutoff Comment (.) 05/21/22 05/21/22 05/21/22 Range/Units 12:44 12:44 15:30 WBC (4.5-11.0) X10^3/uL RBC (4.0-5.2) X10^6/uL Hgb (12.0-16.0) g/dL Hct (36-46) % MCV (80-100) fL MCH (26-34) PG MCHC (30-36) % RDW (11.6-14.8) % Plt Count (150-400) X10^3/uL Neut % (Auto) (50-75) % Lymph % (Auto) (25-40) % Humphreys % (Auto) (3-14) % Eos % (Auto) (2-4) % Baso % (Auto) (0-2) % Neut # (Auto) (8073-8213) /uL Lymph # (Auto) (6647-6844) /uL Humphreys # (Auto) (0-900) /uL Eos # (Auto) (0-450) /uL Baso # (Auto) (0-100) /uL PT (10.1-12.7) SECONDS INR (0.9-1.3) APTT (26.4-36.2) SECONDS Sodium (137-145) mmol/L Potassium (3.4-5.1) mmol/L Chloride (98-107) mmol/L Carbon Dioxide (22-32) mmol/L BUN (7-17) mg/dL Creatinine (0.52-1.04) mg/dL Estimated GFR (>60) mL/min BUN/Creatinine Ratio (6-22) Glucose (80-110) mg/dL Calcium (8.4-10.2) mg/dL Total Bilirubin (0.2-1.3) mg/dL AST (14-36) IU/L ALT (<35) IU/L Alkaline Phosphatase (38-126) U/L Ammonia (9-30) umol/L Total Protein (6.3-8.2) g/dL Albumin (3.5-5.0) g/dL Globulin (1.7-4.1) g/dL Albumin/Globulin Ratio (1.0-2.8) Lipase (23-300) U/L Urine Color Yellow Urine Appearance Clear Urine pH 5.5 (4.5-8.0) Ur Specific [place] 1.010 (1.000-1.035) Urine Protein Negative (Negative) Urine Glucose (UA) Trace H (Negative) g/dL Urine Ketones Negative (NEGATIVE) Urine Occult Blood 1+ H (Negative) Urine Nitrate Positive H (Negative) Urine Bilirubin 2+ H (NEGATIVE) Ur Bilirubin Confirm Positive H (Negative) Urine Urobilinogen 0.2 (0.2) E.U./dL Ur Leukocyte Esterase Negative (NEGATIVE) Urine RBC 0-1/hpf (0-5/HPF) Urine WBC 0-1/hpf (0-5/HPF) Amorphous Sediment 1+ Urine Bacteria Many (>30) H (None) Ur Culture Indicated? Specimen cultured U Opiates 300ng/mL cut Negative (Negative) Ur Oxycodone Screen Negative (Negative) Urine Methadone Screen Negative (Negative) Acetaminophen (10-30) ug/mL Ur Barbiturates Screen Negative (Negative) U Tricyclic Antidepress Negative (Negative) Ur Phencyclidine Scrn Negative (Negative) Ur Amphetamines Screen Negative (Negative) U Methamphetamines Scrn Negative (Negative) Ur MDMA Scrn (Ecstasy) Negative (Negative) U Benzodiazepines Scrn Negative (Negative) Urine Cocaine Screen Negative (Negative) U Marijuana (THC) Screen Negative (Negative) Ethyl Alcohol ( - 10) mg/dL SARS-CoV-2 (PCR) Negative (Negative) Hepatitis A IgM Ab (Negative) Hep Bs Antigen (Negative) Hep B Core IgM Ab (Negative) Hepatitis C Antibody (0.0-0.9) s/co ratio Hep C Ab Signal/Cutoff (.) MDM Narrative Medical decision making narrative: Linda Patient is not evaluated or seen by myself. Reviewing cultures. Urine is positive for E coli pansensitive. Keflex is sent to patient's preferred pharmacy nursing staff to call patient. Discharge Plan Departure Patient Disposition: Home Clinical Impression: Jaundice, Mass of pancreas Activity Restrictions/Additional Instructions: Your imaging today shows mass at the head of the pancreas. This appears to be blocking the drainage of the biliary ducts and causing elevation of your liver enzymes and bilirubin and causing your jaundice today. I spoke with your tail dogger Dr. Toth, he would like to see you this Thursday for possible ERCP and further workup and treatment. You have had a COVID swab today it is pending. If they need a hard copy for your procedure feel free to stop by tomorrow for a copy. Please return for fevers, new abdominal pain, persistent vomiting, lightheadedness or passing out, new chest pain or shortness of breath or other new or concerning symptoms. Prescriptions: New cephalexin 500 mg capsule 500 mg PO BID 5 Days Qty: 10 0RF No Action atorvastatin 40 mg tablet 40 mg PO BEDTIME conjugated estrogens [Premarin] 0.9 MG tablet 0.9 mg PO QDAY Qty: 0 hydrocodone-acetaminophen [Vicodin] 5 MG/300 MG tablet 1 tab PO Q6HP PRNQty: 20 0RF Referrals: Carloz Han MD [Primary Care Provider] - Visit Report Forms: Patient Portal/API
[2022-05-21 12:49] LABS: Appearance Urine UA CLEAR; Bilirubin Urine UA 2+ (NEGATIVE); Color Urine UA YELLOW; Glucose Urine UA TRACE g/dL (Negative); Ketones Urine UA NEGATIVE (NEGATIVE); Leukocyte Esterase Urine UA NEGATIVE (NEGATIVE); Nitrite Urine UA POSITIVE (Negative); Occult Blood Urine UA 1+ (Negative); Protein Urine UA NEGATIVE (Negative); Urobilinogen Urine UA 0.2 E.U./dL (0.2)
[2022-05-21 12:53] LABS: pH Urine UA 5.5 (4.5-8.0)
[2022-05-21 12:58] LABS: Amorphous Sediment Urine 1+; Bacteria Urine Many (>30); Culture Indicated Urine Specimen Cultured; RBC Urine 0-1/HPF (0-5/HPF); WBC Urine 0-1/HPF (0-5/HPF)
[2022-05-21 13:00] LABS: Ictotest Urine Positive (Negative)
--- NOTE | 2022-05-21 13:40 | DI.CT.S_ITS ---
PROCEDURE: CT ABDOMEN PELVIS W CON multiphase INDICATIONS: mass pancretic head TECHNIQUE: After the administration of intravenous contrast, axial sections acquired from the lung bases to the pubic symphysis. Coronal and sagittal reformats were performed. For radiation dose reduction, the following was used: automated exposure control, adjustment of mA and/or kV according to patient size. 2 phases were performed. COMPARISON: Same-day ultrasound FINDINGS: Image quality: Excellent. Lung bases: Basal atelectasis. Heart: Cardiomegaly. ABDOMEN: Liver: Unremarkable. Gallbladder: Distended Biliary ducts: Moderate dilation throughout the biliary tree Pancreas: Pancreatic head mass measuring 3.1 x 3.2 cm. There is upstream pancreatic ductal dilation and atrophy. The mass encases the portal confluence and is near occlusive. Less than 180? of contact with the common hepatic artery and SMA. Spleen: Unremarkable. Adrenal Glands: Unremarkable. Kidneys and Ureters: Subcentimeter lesions are too small to characterize. Stomach and Bowel: Incidentally noted malrotation anatomy. No bowel obstruction. Diffuse mild colonic wall thickening. Peritoneum: No abnormal intraperitoneal fluid. No free air. Ventral Wall: No hernias. Abdominal Nodes: No lymphadenopathy. There is congestion around central mesenteric root. Vessels: Mild atherosclerotic calcifications. There portal venous varices. PELVIS: Pelvic Organs: Hysterectomy Bladder: Distended Pelvic Nodes: No enlarged lymph nodes. Miscellaneous: No hernias are seen. Bones: Scoliosis and multilevel spondylosis. L5 on S1 anterolisthesis. 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 The portal confluence is encased and occluded. Less than 180? of contact with the SMA and common hepatic artery. No definite distant metastases at this time. there is central mesenteric congestion. Possible mild diffuse colitis. Dictated by: Aldo Harley M.D. on 05/21/2022 at 14:44 Approved by: Aldo Harley M.D. on 05/21/2022 at 14:53
[2022-05-21] MEDS: IBUPROFEN 400 MG TABLET PO (14:16)
[2022-05-21 15:40] LABS: UR Morphine/Opiate cutoff 300 Negative (Negative); Ur Creatinine Normal (Normal); Ur Specific Gravity Normal (Normal); Urine Amphetamines Negative (Negative); Urine Barbiturates Negative (Negative); Urine Benzodiazepines Negative (Negative); Urine Cocaine Negative (Negative); Urine MDMA Negative (Negative); Urine Methadone Negative (Negative); Urine Methamphetamines Negative (Negative); Urine Oxycodone Negative (Negative); Urine Phencyclidine Negative (Negative); Urine Tetrahydrocannabinol Negative (Negative); Urine Tricyclic Antidepressant Negative (Negative); Urine pH Normal (Normal)
[2022-05-21 16:43] LABS: COVID19 - ADMIT (NP swab/PCR) Negative (Negative)
[2022-05-22 06:07] LABS: HBsAg Screen Negative (Negative); Hepatitis A Antibody IgM Negative (Negative); Hepatitis B Core Antibody IgM Negative (Negative); Hepatitis C Antibody <0.1 s/co ratio (0.0-0.9)
== END 2022-05-21 15:51 | disposition home or self-care (01) ==
PROVIDERS: Emergency Provider Emergency Medicine; PCP Internal Medicine
DX: R17 Unspecified jaundice (principal); K86.89 Other specified diseases of pancreas; R19.7 Diarrhea, unspecified; Z20.822 Contact with and (suspected) exposure to COVID-19; R79.89 Other specified abnormal findings of blood chemistry; K83.8 Other specified diseases of biliary tract; K82.8 Other specified diseases of gallbladder
CPT/HCPCS: 36415; 74177; 76705; 80053; 80074; 80305; 80320; 80329; 81001; 82140; 83690; 85025; 85610; 85730; 87077; 87086; 87186; 87635; 99283; 99284; C9803; G0480

== ENCOUNTER → 2022-05-26 08:21 | Outpatient (CLI) | payer MEDICARE, OTHER, SELFPAY ==
[2022-05-26 09:29] LABS: Alanine Aminotransferase 225 IU/L (<35); Albumin 3.4 g/dL (3.5-5.0); Albumin Globulin Ratio 1.3 (1.0-2.8); Alkaline Phosphatase 520 U/L (38-126); Aspartate Aminotransferase 198 IU/L (14-36); BUN Creatinine Ratio 16.4 (6-22); Bilirubin Total 2.8 mg/dL (0.2-1.3); Blood Urea Nitrogen 11 mg/dL (7-17); Calcium 8.7 mg/dL (8.4-10.2); Carbon Dioxide 32 mmol/L (22-32); Chloride 101 mmol/L (98-107); Estimated Glomerular Filt Rate > 60 mL/min (>60); Globulin 2.7 g/dL (1.7-4.1); Glucose 95 mg/dL (80-110); HEMOLYSIS < 15 (0-50); Potassium 3.6 mmol/L (3.4-5.1); Sodium 140 mmol/L (137-145); Total Protein 6.1 g/dL (6.3-8.2)
[2022-05-28 13:59] LABS: Cholesterol, Total 151 mg/dL (100-199); HDL-Cholesterol 56 mg/dL (>39); HDL-Particle (Total) 20.6 umol/L (>=30.5); LDL Particle 900 nmol/L (<1000); LDL Size 21.2 nm (>20.5); LDL-Cholsterol 82 mg/dL (0-99); LP-IR Score <25 (<=45); Small LDL- Particle <90 nmol/L (<=527); Triglycerides 67 mg/dL (0-149)
== END ==
PROVIDERS: PCP Internal Medicine; Referring Provider Specialist; Visit Provider Specialist
DX: I10 Essential (primary) hypertension (principal); E78.00 Pure hypercholesterolemia, unspecified
CPT/HCPCS: 36415; 80053; 80061; 83704

== ENCOUNTER → 2022-11-19 07:20 | Outpatient (CLI) | payer MEDICARE, OTHER, SELFPAY ==
[2022-11-19 08:21] LABS: Alanine Aminotransferase 19 IU/L (<35); Albumin 3.8 g/dL (3.5-5.0); Albumin Globulin Ratio 1.6 (1.0-2.8); Alkaline Phosphatase 83 U/L (38-126); Aspartate Aminotransferase 27 IU/L (14-36); Bilirubin Total 0.4 mg/dL (0.2-1.3); Blood Urea Nitrogen 17 mg/dL (7-17); Calcium 8.8 mg/dL (8.4-10.2); Carbon Dioxide 27 mmol/L (22-32); Chloride 105 mmol/L (98-107); Cholesterol 218 mg/dL (140-199); Estimated Glomerular Filt Rate > 60 mL/min (>60); Globulin 2.4 g/dL (1.7-4.1); Glucose 88 mg/dL (80-110); HDL Cholesterol 79 mg/dL (40-60); HEMOLYSIS < 15 (0-50); LDL Cholesterol Calculated 122 mg/dL (<100); Magnesium 1.8 mg/dL (1.6-2.3); Potassium 4.1 mmol/L (3.4-5.1); Sodium 138 mmol/L (137-145); Total Protein 6.2 g/dL (6.3-8.2); Triglycerides 84 mg/dL (35-150)
== END ==
PROVIDERS: PCP Family Medicine; Referring Provider Specialist; Visit Provider Specialist
DX: I10 Essential (primary) hypertension (principal); E78.00 Pure hypercholesterolemia, unspecified; I47.1 Supraventricular tachycardia
CPT/HCPCS: 36415; 80053; 80061; 83735

== ENCOUNTER → 2023-06-03 07:17 | Outpatient (CLI) | payer MEDICARE, OTHER, SELFPAY ==
[2023-06-03 08:23] LABS: Alanine Aminotransferase 54 IU/L (<35); Albumin 3.8 g/dL (3.5-5.0); Albumin Globulin Ratio 1.6 (1.0-2.8); Alkaline Phosphatase 110 U/L (38-126); Aspartate Aminotransferase 35 IU/L (14-36); BUN Creatinine Ratio 16.8 (6-22); Bilirubin Total 0.6 mg/dL (0.2-1.3); Blood Urea Nitrogen 16 mg/dL (7-17); Calcium 9.1 mg/dL (8.4-10.2); Carbon Dioxide 26 mmol/L (22-32); Chloride 107 mmol/L (98-107); Estimated Glomerular Filt Rate > 60 mL/min (>60); Globulin 2.4 g/dL (1.7-4.1); Glucose 96 mg/dL (80-110); Potassium 4.4 mmol/L (3.4-5.1); Sodium 139 mmol/L (137-145); Total Protein 6.2 g/dL (6.3-8.2)
[2023-06-03 09:20] LABS: HEMOLYSIS < 15 (0-50)
[2023-06-05 10:18] LABS: Cholesterol, Total 203 mg/dL (100-199); HDL-Cholesterol 83 mg/dL (>39); HDL-Particle (Total) 37.8 umol/L (>=30.5); LDL Particle 921 nmol/L (<1000); LDL Size 21.9 nm (>20.5); LDL-Cholsterol 104 mg/dL (0-99); LP-IR Score <25 (<=45); Small LDL- Particle <90 nmol/L (<=527); Triglycerides 94 mg/dL (0-149)
== END ==
PROVIDERS: PCP Family Medicine; Referring Provider Specialist; Visit Provider Specialist
DX: I10 Essential (primary) hypertension (principal); E78.00 Pure hypercholesterolemia, unspecified
CPT/HCPCS: 36415; 80053; 80061; 83704; 83735

== ENCOUNTER → 2023-06-16 09:05 | Outpatient (CLI) | payer MEDICARE, OTHER, SELFPAY ==
--- NOTE | 2023-06-16 | DI.ECHO.S_ITS ---
[facility] +---------+ : : [address] : : : : [id number] : : : : Phone: [phone]+ Echocardiogram Report + + :Name: JAIRO FARMER Study Date: 06/16/2023 Height: 63 in : :[facility] ReadingLocation: Weight: 120 lb : : Gender: Female BSA: 1.6 m2 : :: 1940 Age: 82 yrs BP: 126/85 mmHg: :Reason For Study: MITRAL INSUFFICIENCY : :Ordering Physician: NGUYEN, : :LUIS Performed By: Betsy Haile : :Referring: LUIS CEDILLO : + + Interpretation Summary Left ventricular systolic function remains normal with an estimated ejection fraction of 65 to 70% without focal abnormality and appears slightly more dynamic compared to the previous study. Left ventricular strain is slightly reduced at -17.9%. Left ventricular size remains normal and appears slightly smaller compared to the previous study. While diastolic function remains challenging to assess, there is no evidence for increased filling pressures and are likely unchanged, possibly slightly higher compared to the previous study. The right ventricle remains normal in size with systolic function likely at the lower limits of normal and appears slightly less dynamic compared to the previous study. Right ventricular systolic pressure cannot be estimated but CVP is likely around 3 mmHg. There is severe left atrial enlargement with normal right atrial size. Both measure slightly larger compared to the previous study. There continues to be mild bileaflet mitral valve prolapse with probable moderate to severe mitral regurgitation, likely unchanged, with a PISA diameter of 0.8 cm, similar to previous studies, perhaps slightly larger. 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 There is no other significant valvular abnormality. The ascending aorta remains mildly enlarged but unchanged. The patient was in sinus rhythm at 70 to 85 bpm which is faster compared to the previous exam, and a brief run of SVT up to 160 bpm noted. Procedure: A two-dimensional transthoracic echocardiogram with color flow and Doppler was performed. The study quality was technically adequate. Comparison is made with the echocardiogram of 06/24/2021. The patient was in sinus rhythm with heart rates between 68-80 bpm during the exam. A brief run of SVT up to 160 bpm lasting a few seconds was noted. Left Ventricle: The left ventricle is normal in size and wall thickness. Proximal septal thickening is noted. The estimated left ventricular end diastolic volume is 49 ml. This is unchanged, perhaps slightly smaller compared to the previous study. Left ventricular systolic function appears normal without focal wall motion abnormalities. The ejection fraction is estimated to be 65-70%. This is slightly more dynamic compared to the previous study. Left ventricular global longitudinal strain average is -17.9%%. Diastolic parameters suggest probable normal left ventricular diastolic function and normal filling pressures. This is unchanged, possibly slightly higher compared to the previous study. Right Ventricle: The right ventricle is normal size. Right ventricular systolic function is at the lower limits of normal. This is slightly less dynamic compared to the previous study. Atria: The left atrium is severely dilated. Both atria have mildly increased in size since the prior echo exam. Right atrial size is normal. There is no Doppler evidence for an interatrial shunt. Mitral Valve: The mitral valve leaflets appear moderately thickened, but open well. There is a flat closure plane of the the mitral valve leaflets. There is mild mitral valve prolapse. There is moderate to severe mitral regurgitation. This is likely unchanged compared to the previous study. Aortic Valve: The aortic valve is trileaflet. There is mild aortic valve sclerosis. The aortic valve is slightly calcified. The aortic valve opens well. There is no aortic valve stenosis. No aortic regurgitation is present. Tricuspid Valve: The tricuspid valve is normal in structure and function. There is trace tricuspid regurgitation. Pulmonary artery pressures cannot be estimated because of the lack of a measurable TR jet velocity but the IVC suggests a CVP of around 3 mmHg. Pulmonic Valve: The pulmonic valve leaflets are thin and pliable; valve motion is normal. There is no pulmonic valvular regurgitation. Great Vessels: The aortic root is normal size. The ascending aorta is mildly enlarged. This is unchanged compared to the previous study. The IVC is of normal diameter and collapses greater than 50% with a sniff. This suggests a low right atrial pressure of 3 mm Hg. Pericardium/ Pleura There is no pericardial effusion. There is no pleural effusion. MMode/2D Measurements & Calculations LVIDd: 5.0 cm LVOT diam: 1.9 cm LVIDs: 3.2 cm Ao root diam: 3.1 cm FS: 35.0 % asc Aorta Diam: 3.5 cm EPSS: 0.62 cm Ao Arch Diam (Prox Trans): 2.8 cm IVSd: 0.99 cm LVPWd: 0.94 cm LV sevilla. diameter/BSA (cm/m^2): 3.2 LV sys. diameter/BSA (cm/m^2): 2.1 LA A2 area: 27.8 cm2 RA long axis: 5.3 cm LA A4 area: 29.6 cm2 RA area: 14.2 cm2 LA length (vol): 6.6 cm RA vol: 32.2 ml LA vol: 105.5 ml RA : 20.7 ml/m2 LA vol index: 67.8 ml/m2 IVC diam: 1.3 cm RVD1 (basal): 2.8 cm RVD2 (mid): 1.8 cm TAPSE: 1.6 cm Doppler Measurements & Calculations Ao V2 max: 164.7 cm/sec LVOT Max Prince: 84.0 cm/sec Ao V2 mean: 105.6 cm/sec LV V1 max P.8 mmHg Ao max P.8 mmHg LV V1 VTI: 12.5 cm Ao mean P.2 mmHg DALTON(I,D): 1.6 cm2 Ao V2 VTI: 23.2 cm DALTON(V,D): 1.5 cm2 sev ratio: 0.54 DALTON indexed to BSA (cm^2/m^2): 1.0 MV E max prince: 75.3 cm/sec TR max prince: 201.4 cm/sec MV A max prince: 69.5 cm/sec TR max P.2 mmHg MV E/A: 1.1 PA V2 max: 73.8 cm/sec Med Peak E' Prince: 5.7 cm/sec PA V2 mean: 49.3 cm/sec E/E' med: 13.3 PA mean P.1 mmHg Lat Peak E' Prince: 10.1 cm/sec PA pr(Accel): 36.2 mmHg E/E' lat: 7.5 E/e' average: 10.4 MV dec time: 0.18 sec MR ERO: 0.26 cm2 MR PISA: 4.2 cm2 SV(LVOT): 36.6 ml MR flow rate: 135.4 cm3/sec MR PISA radius: 0.82 cm Reading Physician:09:07 AM
== END ==
PROVIDERS: PCP Family Medicine; Referring Provider Physician Assistant Medical; Visit Provider Specialist
DX: I08.0 Rheumatic disorders of both mitral and aortic valves (principal); I77.89 Other specified disorders of arteries and arterioles
CPT/HCPCS: 93306

== ENCOUNTER → 2023-11-23 09:14 | Outpatient (CLI) | payer MEDICARE, OTHER, SELFPAY ==
[2023-11-23 09:52] LABS: Hematocrit 38.1 % (36-46); Hemoglobin 12.8 g/dL (12.0-16.0); Mean Corpuscular HGB Conc 33.6 % (30-36); Mean Corpuscular Hemoglobin 28.7 PG (26-34); Mean Corpuscular Volume 85.4 fL (80-100); Platelet Count 188 X10^3/uL (150-400); Red Blood Cell Count 4.46 X10^6/uL (4.0-5.2); Red Cell Distribution Width 14.4 % (11.6-14.8); White Blood Cell Count 6.4 X10^3/uL (4.5-11.0)
[2023-11-23 10:35] LABS: Alanine Aminotransferase 24 IU/L (<35); Albumin Globulin Ratio 1.4 (1.0-2.8); Alkaline Phosphatase 115 U/L (38-126); Aspartate Aminotransferase 29 IU/L (14-36); BUN Creatinine Ratio 26.8 (6-22); Bilirubin Total 0.5 mg/dL (0.2-1.3); Blood Urea Nitrogen 19 mg/dL (7-17); Calcium 9.2 mg/dL (8.4-10.2); Carbon Dioxide 25 mmol/L (22-32); Chloride 104 mmol/L (98-107); Estimated Glomerular Filt Rate > 60 mL/min (>60); Globulin 2.9 g/dL (1.7-4.1); Glucose 88 mg/dL (80-110); HEMOLYSIS < 15 (0-50); Lipase 47 U/L (23-300); Potassium 4.1 mmol/L (3.4-5.1); Sodium 139 mmol/L (137-145); Total Protein 6.9 g/dL (6.3-8.2)
[2023-11-24 06:36] LABS: Cancer (Carbohydrate) Ag 19-9 54 U/mL (0-35)
== END ==
LOC: LAB 09:16
PROVIDERS: PCP Internal Medicine; Referring Provider Internal Medicine; Visit Provider Internal Medicine
DX: C25.9 Malignant neoplasm of pancreas, unspecified (principal)
CPT/HCPCS: 36415; 80053; 83690; 85027; 86301

== ENCOUNTER → 2023-12-22 14:58 | Outpatient (CLI) | payer MEDICARE, OTHER, SELFPAY ==
[2023-12-22 19:00] LABS: Appearance Urine UA CLEAR; Bilirubin Urine UA 3+ (NEGATIVE); Color Urine UA ORANGE; Leukocyte Esterase Urine UA TRACE (NEGATIVE); Occult Blood Urine UA 2+ (Negative); Protein Urine UA 1+ (Negative)
[2023-12-22 19:16] LABS: Glucose Urine UA NEGATIVE (Negative); Nitrite Urine UA NEGATIVE (Negative)
[2023-12-22 19:17] LABS: Bacteria Urine Few (2-10); Ictotest Urine Positive (Negative); Ketones Urine UA NEGATIVE (NEGATIVE); RBC Urine 0-1/HPF (0-5/HPF); Squamous Epithelial Cell Urine 1-5 /HPF (0-5/HPF); Urine Volume 10mL (spun); WBC Urine 1-5/HPF (0-5/HPF)
[2023-12-22 19:18] LABS: Calcium Oxalate Crystals Urine Occasional; Culture Indicated Urine Specimen Cultured; Mucus Urine 1+ (Negative)
== END ==
PROVIDERS: PCP Internal Medicine; Visit Provider Internal Medicine
DX: R31.9 Hematuria, unspecified (principal)
CPT/HCPCS: 81001; 87086

== ENCOUNTER → 2024-02-18 11:22 | Outpatient (CLI) | payer MEDICARE, OTHER, SELFPAY ==
[2024-02-18 11:43] LABS: Add Manual Diff / Slide Review NO; Basophils Absolute Auto 100 /uL (0-100); Basophils Percent Auto 1.2 % (0-2); Eosinophils Absolute Auto 200 /uL (0-450); Eosinophils Percent Auto 2.3 % (2-4); Hematocrit 38.7 % (36-46); Hemoglobin 12.9 g/dL (12.0-16.0); Lymphocytes Absolute Auto 2400 /uL (1100-4500); Lymphocytes Percent Auto 31.4 % (25-40); Mean Corpuscular HGB Conc 33.4 % (30-36); Mean Corpuscular Hemoglobin 29.1 PG (26-34); Mean Corpuscular Volume 87.2 fL (80-100); Monocytes Absolute Auto 800 /uL (0-900); Monocytes Percent Auto 10.3 % (3-14); Neutrophils Absolute Auto 4100 /uL (1500-7000); Neutrophils Percent Auto 54.8 % (50-75); Platelet Count 224 X10^3/uL (150-400); Red Blood Cell Count 4.44 X10^6/uL (4.0-5.2); Red Cell Distribution Width 14.3 % (11.6-14.8); White Blood Cell Count 7.5 X10^3/uL (4.5-11.0)
[2024-02-18 12:18] LABS: Alanine Aminotransferase 17 IU/L (<35); Albumin 4.3 g/dL (3.5-5.0); Albumin Globulin Ratio 1.5 (1.0-2.8); Alkaline Phosphatase 93 U/L (38-126); Aspartate Aminotransferase 29 IU/L (14-36); Bilirubin Total 0.5 mg/dL (0.2-1.3); Blood Urea Nitrogen 24 mg/dL (7-17); Calcium 9.1 mg/dL (8.4-10.2); Carbon Dioxide 26 mmol/L (22-32); Chloride 106 mmol/L (98-107); Estimated Glomerular Filt Rate > 60 mL/min (>60); Globulin 2.8 g/dL (1.7-4.1); Glucose 110 mg/dL (80-110); HEMOLYSIS < 15 (0-50); Lipase 545 U/L (23-300); Potassium 4.6 mmol/L (3.4-5.1); Sodium 138 mmol/L (137-145); Total Protein 7.1 g/dL (6.3-8.2)
== END ==
PROVIDERS: PCP Internal Medicine; Referring Provider Internal Medicine; Visit Provider Internal Medicine
DX: C25.9 Malignant neoplasm of pancreas, unspecified (principal); I10 Essential (primary) hypertension; I34.0 Nonrheumatic mitral (valve) insufficiency; E78.2 Mixed hyperlipidemia
CPT/HCPCS: 36415; 80053; 83690; 85025

== ENCOUNTER → 2024-05-05 13:31 | Outpatient (CLI) | payer MEDICARE, OTHER, SELFPAY ==
[2024-05-05 14:42] LABS: Add Manual Diff / Slide Review NO; Basophils Absolute Auto 100 /uL (0-100); Basophils Percent Auto 0.7 % (0-2); Eosinophils Absolute Auto 200 /uL (0-450); Eosinophils Percent Auto 2.3 % (2-4); Hematocrit 39.4 % (36-46); Hemoglobin 13.1 g/dL (12.0-16.0); Lymphocytes Absolute Auto 2700 /uL (1100-4500); Lymphocytes Percent Auto 31.1 % (25-40); Mean Corpuscular HGB Conc 33.3 % (30-36); Mean Corpuscular Hemoglobin 28.8 PG (26-34); Mean Corpuscular Volume 86.7 fL (80-100); Monocytes Absolute Auto 900 /uL (0-900); Monocytes Percent Auto 9.8 % (3-14); Neutrophils Absolute Auto 4900 /uL (1500-7000); Neutrophils Percent Auto 56.1 % (50-75); Platelet Count 200 X10^3/uL (150-400); Red Blood Cell Count 4.54 X10^6/uL (4.0-5.2); Red Cell Distribution Width 14.2 % (11.6-14.8); White Blood Cell Count 8.7 X10^3/uL (4.5-11.0)
[2024-05-05 15:15] LABS: Alanine Aminotransferase 20 IU/L (<35); Albumin 4.2 g/dL (3.5-5.0); Albumin Globulin Ratio 1.7 (1.0-2.8); Alkaline Phosphatase 107 U/L (38-126); Amylase 52 U/L (30-110); Aspartate Aminotransferase 29 IU/L (14-36); Bilirubin Total 0.5 mg/dL (0.2-1.3); Blood Urea Nitrogen 13 mg/dL (7-17); Carbon Dioxide 26 mmol/L (22-32); Chloride 105 mmol/L (98-107); Estimated Glomerular Filt Rate > 60 mL/min (>60); Globulin 2.5 g/dL (1.7-4.1); Glucose 82 mg/dL (80-110); HEMOLYSIS < 15 (0-50); Lipase 193 U/L (23-300); Potassium 4.4 mmol/L (3.4-5.1); Sodium 139 mmol/L (137-145); Total Protein 6.7 g/dL (6.3-8.2)
[2024-05-05 15:38] LABS: TSH w/ Reflex to FT4 1.37 uIU/mL (0.47-4.68)
[2024-05-07 07:36] LABS: Cancer (Carbohydrate) Ag 19-9 402 U/mL (0-35)
== END ==
PROVIDERS: PCP Internal Medicine; Referring Provider Physician Assistant; Visit Provider Physician Assistant
DX: R19.7 Diarrhea, unspecified (principal); R97.8 Other abnormal tumor markers
CPT/HCPCS: 36415; 80053; 82150; 83690; 84443; 85025; 86301

== ENCOUNTER → 2024-05-06 08:24 | Outpatient (CLI) | payer MEDICARE, OTHER, SELFPAY ==
[2024-05-09 11:36] LABS: Fecal Immunochemical Test Negative (Negative)
== END ==
PROVIDERS: PCP Internal Medicine; Referring Provider Physician Assistant; Visit Provider Physician Assistant
DX: R19.7 Diarrhea, unspecified (principal)
CPT/HCPCS: 82274; 87045; 87177

== ENCOUNTER → 2024-09-23 09:23 | Outpatient (CLI) | payer MEDICARE, OTHER, SELFPAY ==
[2024-09-23 10:23] LABS: Hematocrit 35.8 % (36-46); Hemoglobin 12.2 g/dL (12.0-16.0); Mean Corpuscular Hemoglobin 29.7 PG (26-34); Mean Corpuscular Volume 87.3 fL (80-100); Platelet Count 202 X10^3/uL (150-400); Red Cell Distribution Width 13.5 % (11.6-14.8)
[2024-09-23 10:48] LABS: Alanine Aminotransferase 13 IU/L (<35); Albumin 3.3 g/dL (3.5-5.0); Albumin Globulin Ratio 1.3 (1.0-2.8); Alkaline Phosphatase 70 U/L (38-126); Aspartate Aminotransferase 24 IU/L (14-36); BUN Creatinine Ratio 20.5 (6-22); Bilirubin Total 0.5 mg/dL (0.2-1.3); Blood Urea Nitrogen 15 mg/dL (7-17); Calcium 8.9 mg/dL (8.4-10.2); Carbon Dioxide 31 mmol/L (22-32); Chloride 103 mmol/L (98-107); Estimated Glomerular Filt Rate > 60 mL/min (>60); Globulin 2.5 g/dL (1.7-4.1); Glucose 122 mg/dL (80-110); HEMOLYSIS < 15 (0-50); Potassium 4.3 mmol/L (3.4-5.1); Sodium 135 mmol/L (137-145); Total Protein 5.8 g/dL (6.3-8.2)
== END ==
PROVIDERS: PCP Internal Medicine; Referring Provider Specialist; Visit Provider Specialist
DX: I10 Essential (primary) hypertension (principal); I34.0 Nonrheumatic mitral (valve) insufficiency
CPT/HCPCS: 36415; 80053; 85027

== ENCOUNTER 2024-10-15 09:48 | Emergency (ER) | payer MEDICARE, OTHER, SELFPAY ==
[2024-10-15 10:01] VITALS: BP 135/79; PULSE 96; RESP 14; TEMP 36.8; O2SAT 99; BMI 18.0
--- NOTE | 2024-10-15 12:02 | ED.BACK ---
HPI - Back Pain/Injury <Elsi Villegas PA-C - Last Filed: 10/15/24 14:53> General Chief Complaint: Back Pain/Injury Stated Complaint: per pt pinched nerve on back Time Seen by Provider: 10/15/24 11:51 Source: patient History of Present Illness HPI Narrative: 83-year-old female presents with left-sided low back pain. She points to the lumbosacral area. She was seen at the walk-in clinic on and given Flexeril 5 mg and she does get some relief from this but wonders if a larger dose would be more helpful. She is denying any specific injury but her history is significant for scoliosis, multilevel spondylosis, L5-S1 anterolisthesis based on a CT scan of 2021. She is denying any radiation of symptoms, she is able to reproduce the pain if she touches the area, she reports no hip pain, buttock pain, upper back pain, no fever and no urinary symptoms or bowel issues. 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 She completed chemotherapy and is not undergoing any additional treatment. She also has atrial fibrillation she takes digoxin, hypertension, gastric outlet obstruction with a stent, hyperlipidemia and mitral regurgitation. She no longer takes aspirin, last dose of Flexeril was 8:00 a.m. this morning 5 mg, she also has Valium 0.5 mg for bedtime and sleeping. She no longer takes morphine, phenobarbital. She does work out regularly at [employer] she also walks her dog but she has taken a month off from regular exercise. No disruption during sleep. As far as any NSAID trial she did take an ibuprofen last night but did not like how it made her feel she normally takes leave but did not have any on hand. All other systems are reviewed and are negative. Related Data Home Medications Medication Instructions Recorded Confirmed cetirizine 10 mg capsule (Zyrtec) 10 mg PO DAILY PRN 05/05/24 08/31/24 sennosides 8.6 mg tablet (senna) mg PO 08/10/24 08/31/24 aspirin 81 mg tablet,delayed 81 mg PO DAILY 08/31/24 08/31/24 release Previous Rx's Medication Instructions Recorded [id number] 2 cap PO TID #120 caps 05/17/24 36,000-114,000-180,000 unit capsule,delay rel (Creon) amitriptyline 10 mg tablet See Rx Instructions PO ONCE #1 tab 06/15/24 digoxin 125 mcg (0.125 mg) tablet See Rx Instructions PO ONCE #1 tab 06/15/24 morphine 15 mg immediate release See Rx Instructions PO ONCE #1 tab 06/15/24 tablet phenobarbital 15 mg tablet See Rx Instructions PO ONCE #1 tab 06/15/24 metoprolol tartrate 25 mg tablet 25 mg PO BID #180 tabs 08/10/24 lorazepam 0.5 mg tablet 0.5 mg PO DAILY PRN anxiety or 08/31/24 sleep #30 tabs cyclobenzaprine 5 mg tablet 5 mg PO TID PRN muscle spasm #12 10/13/24 tabs cyclobenzaprine 10 mg tablet 10 mg PO TID #20 tabs 10/15/24 Allergies Allergy/AdvReac Type Severity Reaction Status Date / Time No Known Drug Allergies Allergy Verified 10/15/24 10:01 Review of Systems <Elsi Villegas PA-C - Last Filed: 10/15/24 14:53> Review of Systems Narrative: All other systems reviewed and are negative. 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 Const Other: Smiling, standing, no distress. Eyes General: Yes appearance normal, both eyes and all related structures Neck Neck: normal visual inspection and full ROM Other: No focal bony midline tenderness of the neck. Range of motion is intact. Chest Chest: normal inspection of the chest Resp Effort & Inspection: normal respiratory effort and able to speak in complete sentences Auscultation: clear to auscultation bilaterally, no rales, no rhonchi and no wheezes Cardio Rate: regular rate Rhythm: abnormal rhythm GI Inspection: normal to inspection, no edema and non-distended Palpation: soft and no hepatosplenomegaly Back/Spine/Pelvis Other: Obvious scoliosis, right to left curvature. No focal bony midline tenderness of the thoracic, lumbar, sacral spines. She has tenderness in the paraspinous tissues of the lumbar sacral junction. There is no palpable mass, no spasm, no guarding but the pain is reproduced at this point in the mid scapular line. Active range of motion of her back she is limited due to her underlying scoliosis but she has no reproducible pain with flexion, lateral bending or rotation. Straight leg raise is negative bilaterally. Skin General: no rashes or lesions noted Neuro Other: No focal neurologic deficits. Distal neurovascular is grossly intact. Deep tendon reflexes are equal in the knee jerk, ankle and plantar are downward. Sensory is intact. Extrem Other: Full weightbear, able to rise from a seated position to standing without difficulty. She has full range of motion to her hip, negative trochanteric discomfort, no piriformis discomfort, gluteus is intact. ITB band is without pain. No antalgic gait. <Antolin Reza DO - Last Filed: 10/15/24 16:56> Initial Vital Signs Initial Vital Signs: Vital Signs Temperature 98.3 F 10/15/24 10:01 Pulse Rate 96 H 10/15/24 10:01 Respiratory Rate 14 10/15/24 10:01 Blood Pressure 135/79 10/15/24 10:01 Pulse Oximetry 99 10/15/24 10:01 Oxygen Delivery Method Room Air 10/15/24 10:01 Course <Elsi Villegas PA-C - Last Filed: 10/15/24 14:53> Orders Ordered: ED Orders 10/15/24 12:02 XR lumbar spine 2-3V Stat Discontinued Medications Ketorolac Tromethamine (Ketorolac 30 Mg/Ml Vial) 15 mg IM NOW ONE Stop: 10/15/24 13:04 Last Admin: 10/15/24 13:30 Dose: 15 mg Documented By: MARGOT Vital Signs Vital signs: Vital Signs - 8 hr 10/15/24 10:01 10/15/24 14:05 Temperature 98.3 F 98.1 F Pulse Rate 96 H 78 Respiratory Rate 14 18 Blood Pressure 135/79 140/79 Pulse Oximetry 99 97 Oxygen Delivery Method Room Air Room Air <Antolin Reza DO - Last Filed: 10/15/24 16:56> Orders Ordered: ED Orders 10/15/24 12:02 XR lumbar spine 2-3V Stat Discontinued Medications Ketorolac Tromethamine (Ketorolac 30 Mg/Ml Vial) 15 mg IM NOW ONE Stop: 10/15/24 13:04 Last Admin: 10/15/24 13:30 Dose: 15 mg Documented By: MARGOT Vital Signs Vital signs: Vital Signs - 8 hr 10/15/24 10:01 10/15/24 14:05 Temperature 98.3 F 98.1 F Pulse Rate 96 H 78 Respiratory Rate 14 18 Blood Pressure 135/79 140/79 Pulse Oximetry 99 97 Oxygen Delivery Method Room Air Room Air MDM - Back Pain/Injury <Elsi Villegas PA-C - Last Filed: 10/15/24 14:53> Imaging Data L-S spine x-ray: My Impression: No fracture identified, deferred to radiologist's impression below. Radiologist's Impression: PROCEDURE: XR LUMBAR SPINE 2-3V INDICATIONS: left lumbar sacral pain, hx pancreatic CA TECHNIQUE: 3 views of the lumbar spine were acquired. COMPARISON: [facility], CT, CT ABDOMEN PELVIS W CON, 05/21/2022, 14:06. FINDINGS: Bones: There is significant rightward spinal curvature at the thoracolumbar junction. Possible inferior endplate deformity at L5 is probably similar to prior, with anterolisthesis again seen compared to 2021. Vertebral body heights are well maintained elsewhere. Radiographic evaluation is limited due to the spinal curvature. Multilevel trace rightward lateral listhesis is present. Background moderate degenerative changes Soft tissues: Stent material projects over the right mid abdomen. Increased fecal loading. IMPRESSION: Significant rightward spinal curvature. No acute radiographic abnormality. Similar anterolisthesis and deformity at L5-S1 compared to 2021 imaging, allowing for differences in modality. Background moderate degenerative changes are present. If there is high concern for further derangement, consider MRI evaluation. Dictated by: Aldo Harley M.D. on 10/15/2024 at 11:31 Approved by: Aldo Harley M.D. on 10/15/2024 at 11:33 [facility] Narrative Medical decision making narrative: X-ray show no evidence of any fracture, she was treated with Toradol 15 mg intramuscularly, she did get some mild relief, she did take 1 of her own Flexeril while she was here and that also helped. We did discuss increasing her Flexeril dose I think this is fine we did talk about over-sedation and to use caution with her Valium, regarding NSAIDs I think she would benefit from a 3-5 day trial with her bwwf-dki-atlxejh Aleve, 2 tablets with food every 12 hours. Next dose would be at bedtime tonight as she had the Toradol. I have asked her to try ice but she prefers not to but she will try heat. I have asked her to follow up with her PCP as I think she would benefit from physical therapy. I think she would also benefit from getting back into the pool at her gym, red flag warning signs reviewed in detail. I do believe this is musculoskeletal as it is reproducible I think contributing factors include her scoliosis, her age. She is commended for staying active and working out regularly along with walking her dog. Discharge Plan Departure Patient Disposition: Home Clinical Impression: Lumbosacral strain Qualifiers: Encounter type: initial encounter Qualified Code(s): S39.012A - Strain of muscle, fascia and tendon of lower back, initial encounter Instructions: DI for Low Back Pain, DI for Muscle Strain Activity Restrictions/Additional Instructions: I have increased her Flexeril to 10 mg and sent the prescription to [facility]. Please use caution as this can cause over sedation along with your lorazepam. You indicated that you do not want to try ice but if you change your mind you can use it 10 minutes at a time directly over clothing several times a day. Please use a heating pad or warm shower as I think this will also help. You were given Toradol injection so do not take any additional nonsteroidal anti-inflammatory today you can start your lhja-ucv-qwjefsy leave which is 220 mg you may take maximum of 2 tablets every 12 hours with food your 1st dose would be at bedtime tonight. Take for 3-5 days, I highly recommend you contact your PCP as I think he would benefit from a physical therapy evaluation and treatment. I think swimming pool therapy would be good as it is antigravity. Please seek medical attention if anything changes or worsens. Also you indicated that you no longer take aspirin this can increase her bleeding risk with the leave so please discuss this with your doctor if you plan to restart her aspirin. Prescriptions: New cyclobenzaprine 10 mg tablet 10 mg PO TID Qty: 20 0RF No Action cyclobenzaprine 5 mg tablet 5 mg PO TID PRN (Reason: muscle spasm) Qty: 12 0RF Creon 36,000-114,000- 180,000 unit capsule,delayed release(DR/EC) 2 cap PO TID Qty: 120 1RF Rx Instructions: administer with meals and/or snacks metoprolol tartrate 25 mg tablet 25 mg PO BID Qty: 180 1RF Zyrtec 10 mg capsule 10 mg PO DAILY PRN sennosides [senna] 8.6 mg tablet PO morphine 15 mg tablet See Rx Instructions PO ONCE Qty: 1 0RF Rx Instructions: 15,000mg PO/NM once (MAID) phenobarbital 15 mg tablet See Rx Instructions PO ONCE Qty: 1 0RF Rx Instructions: 5,000mg PO/NM once (MAID) amitriptyline 10 mg tablet See Rx Instructions PO ONCE Qty: 1 0RF Rx Instructions: 8,000mg PO/NM once (MAID) digoxin 125 mcg (0.125 mg) tablet See Rx Instructions PO ONCE Qty: 1 0RF Rx Instructions: 100mg PO/NM once (MAID) aspirin 81 mg tablet,delayed release (DR/EC) 81 mg PO DAILY lorazepam 0.5 mg tablet 0.5 mg PO DAILY PRN (Reason: anxiety or sleep) Qty: 30 3RF Referrals: Fidel Antonio MD [Primary Care Provider] - Stand Alone Forms: Patient Portal/API/Survey ED Sign-out <Antolin Reza DO - Last Filed: 10/15/24 16:56> Cosign ED Attending Cosignature Attestation: Dr Reza Co-Sign Statement: I was available for consultation during this patient's emergency department visit. This chart is signed by myself for administrative purposes only. I did not have direct contact with this patient during this visit. They were seen independently by the APC.
[2024-10-15] MEDS: KETOROLAC 30 MG/ML VIAL 15 MG IM (13:30)
[2024-10-15 14:05] VITALS: BP 140/79; PULSE 78; RESP 18; TEMP 36.7; O2SAT 97
== END 2024-10-15 14:08 | disposition home or self-care (01) ==
PROVIDERS: Emergency Provider Physician Assistant Medical; PCP Internal Medicine
DX: S39.012A Strain of muscle, fascia and tendon of lower back, initial encounter (principal); X58.XXXA Exposure to other specified factors, initial encounter
CPT/HCPCS: 72100; 96372; 99283; 99284; J1885

== ENCOUNTER 2024-11-26 08:28 | Emergency (ER) | payer MEDICARE, OTHER, SELFPAY ==
[2024-11-26] VITALS (24 sets, daily range): BP systolic 99–139; BP diastolic 54–96; PULSE 81–111; RESP 14–28; TEMP 36.5–36.9; O2SAT 91–100
--- NOTE | 2024-11-26 08:33 | DI.RAD.S_ITS ---
PROCEDURE: XR CHEST 1V INDICATIONS: chest pain TECHNIQUE: One view of the chest was acquired. COMPARISON: [facility], CT, CT CHEST WITH CONTRAST, 05/30/2022, 14:29. FINDINGS: Surgical changes and devices: There is a right-sided chest port, with the tip overlying the inferior aspect of the superior vena cava. The TIPS catheter is partially seen. Lungs and pleura: Lungs are clear. No pleural effusions or pneumothorax. Mediastinum: The cardiac contours are within normal limits. The aorta demonstrates calcification and tortuosity. Bones and chest wall: No suspicious bony lesions. Moderate dextroconvex thoracolumbar scoliosis is seen. Age-appropriate bony degenerative changes are seen. Overlying soft tissues appear unremarkable. IMPRESSION: No acute cardiopulmonary abnormality is seen. Postoperative and degenerative changes are seen. Dextroconvex scoliosis. Dictated by: Wisam Gregg M.D. on 11/26/2024 at 8:32 Approved by: Wisam Gregg M.D. on 11/26/2024 at 8:33
--- NOTE | 2024-11-26 08:33 | EKG_ITS ---
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
[2024-11-26 09:01] LABS: INR 1.1 (0.9-1.3); Prothrombin Time 12.5 SECONDS (9.4-12.5)
--- NOTE | 2024-11-26 09:01 | ED.WEAKNESS ---
HPI - Weakness General Chief complaint: Weakness Stated complaint: weakness, near syncope Time Seen by Provider: 11/26/24 08:39 Source: patient and family Mode of arrival: Wheelchair History of Present Illness HPI Narrative: Patient is a 83-year-old female history of atrial fibrillation on aspirin, pancreatic cancer had pancreatic stent placed in September at [facility] started back on chemotherapy 10 days ago presenting today with increasing weakness and falls. She reports just feeling generally weak and having more falls she has had at least 3 falls in the last 1 week. She reports that she has very low appetite not able to eat very much after the pancreatic stent she was trying to drink fluids. She got up this morning and fell. Not sure if she hit her head or lost consciousness. She has not on antiplatelet or anticoagulation medication. Denies any persistent nausea vomiting or abdominal pain. She was no chest pain or shortness breath. Related Data Home Medications Medication Instructions Recorded Confirmed sennosides 8.6 mg tablet (senna) mg PO 08/10/24 10/25/24 aspirin 81 mg tablet,delayed 81 mg PO DAILY 08/31/24 10/25/24 release Previous Rx's Medication Instructions Recorded [id number] 2 cap PO TID #120 caps 05/17/24 36,000-114,000-180,000 unit capsule,delay rel (Creon) digoxin 125 mcg (0.125 mg) tablet See Rx Instructions PO ONCE #1 tab 06/15/24 morphine 15 mg immediate release See Rx Instructions PO ONCE #1 tab 06/15/24 tablet phenobarbital 15 mg tablet See Rx Instructions PO ONCE #1 tab 06/15/24 metoprolol tartrate 25 mg tablet 25 mg PO BID #180 tabs 08/10/24 lorazepam 0.5 mg tablet 0.5 mg PO DAILY PRN anxiety or 08/31/24 sleep #30 tabs cyclobenzaprine 5 mg tablet 5 mg PO TID PRN muscle spasm #12 10/13/24 tabs cyclobenzaprine 10 mg tablet 10 mg PO TID #20 tabs 10/15/24 mirtazapine 7.5 mg tablet 7.5 mg PO BEDTIME #30 tabs 10/19/24 Allergies Allergy/AdvReac Type Severity Reaction Status Date / Time No Known Drug Allergies Allergy Verified 10/25/24 13:22 Patient History Medical History Atrial fibrillation with rapid ventricular response Do not resuscitate Partial gastric outlet obstruction Essential hypertension Mitral regurgitation Mixed hyperlipidemia Pancreatic cancer Social History details: , 3 children, 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 HEENT: Head atraumatic,EOMI, pupils reactive, face symmetric, moist mucous membranes CARDIOVASCULAR: Regular rate and rhythm without murmurs, rubs or gallops. RESPIRATORY: Breath sounds equal bilaterally, no wheezes rales or rhonchi. ABDOMEN: Soft, nontender. Normoactive bowel sounds all 4 quadrants. No guarding or rebound. RECTAL: Guaiac-positive no hematochezia gross blood normal colored stool EXTREMITIES: Normal range of motion, no clubbing or edema. Neurovascularly intact NEUROLOGICAL: Alert and oriented x4. [facility] Specialists strength equal bilaterally able to move lower extremities SKIN: Warm, dry, no laceration, no petechiae, no rashes or lesions. Course Orders Ordered: ED Orders 11/26/24 08:33 XR chest 1V Stat EKG-12 Lead Stat 11/26/24 08:45 Complete Blood Count AUTO DIFF Stat Comprehensive Metabolic Panel Stat Lipase Stat Magnesium Stat NT-proBNP (BNP-Adult 18+) Stat PTT Partial Thromboplastin Isaak Stat Prothrombin Time INR Stat Troponin & CK Cardiac Panel Stat 11/26/24 09:10 CT head/brain wo con Stat 11/26/24 09:15 CT abdomen pelvis w con Stat 11/26/24 09:17 PRBC [Packed Cells] Stat Type and Screen Stat Discontinued Medications Aspirin (Aspirin 81 Mg Chew Tab) 324 mg PO NOW ONE Stop: 11/26/24 08:34 Last Admin: 11/26/24 09:11 Dose: Not Given Documented By: RB Pantoprazole Sodium (Pantoprazole 40 Mg Vial) 80 mg IV NOW ONE Stop: 11/26/24 12:44 Last Admin: 11/26/24 13:06 Dose: 80 mg Documented By: KAILYN Vital Signs Vital signs: Vital Signs - 8 hr 11/26/24 08:40 11/26/24 08:40 11/26/24 08:41 Temperature 97.7 F Pulse Rate 89 81 Respiratory Rate 16 15 Blood Pressure 114/72 114/72 Pulse Oximetry 91 93 Oxygen Delivery Method Room Air 11/26/24 09:00 11/26/24 09:00 11/26/24 09:36 Temperature Pulse Rate 89 93 H Respiratory Rate 25 H Blood Pressure 103/70 Pulse Oximetry 97 99 Oxygen Delivery Method 11/26/24 10:00 11/26/24 10:05 11/26/24 10:05 Temperature Pulse Rate 94 H 88 Respiratory Rate 28 H 23 Blood Pressure 109/62 Pulse Oximetry 100 100 Oxygen Delivery Method 11/26/24 10:30 11/26/24 10:30 11/26/24 10:54 Temperature Pulse Rate 97 H 93 H Respiratory Rate 20 24 Blood Pressure 104/73 Pulse Oximetry 100 99 Oxygen Delivery Method 11/26/24 10:54 11/26/24 11:00 11/26/24 11:00 Temperature Pulse Rate 100 H Respiratory Rate 19 Blood Pressure 106/73 116/69 Pulse Oximetry 100 Oxygen Delivery Method 11/26/24 11:15 11/26/24 11:15 11/26/24 11:30 Temperature Pulse Rate 93 H Respiratory Rate 21 Blood Pressure 115/66 112/60 Pulse Oximetry 100 Oxygen Delivery Method 11/26/24 11:30 11/26/24 11:45 11/26/24 11:45 Temperature Pulse Rate 91 H 102 H Respiratory Rate 21 16 Blood Pressure 116/59 L Pulse Oximetry 100 100 Oxygen Delivery Method 11/26/24 12:00 11/26/24 12:00 11/26/24 12:15 Temperature Pulse Rate 97 H Respiratory Rate 21 Blood Pressure 139/96 H 118/71 Pulse Oximetry 100 Oxygen Delivery Method 11/26/24 12:15 11/26/24 12:30 11/26/24 12:30 Temperature Pulse Rate 99 H 94 H Respiratory Rate 17 Blood Pressure 112/59 L Pulse Oximetry 100 100 Oxygen Delivery Method Room Air 11/26/24 12:48 02/15/25 12:48 11/26/24 13:00 Temperature Pulse Rate 111 H 98 H Respiratory Rate 20 Blood Pressure 106/60 Pulse Oximetry 100 99 Oxygen Delivery Method 11/26/24 13:00 11/26/24 13:07 11/26/24 13:07 Temperature Pulse Rate 97 H Respiratory Rate 16 Blood Pressure 107/59 L 99/54 L Pulse Oximetry 100 Oxygen Delivery Method 11/26/24 13:09 11/26/24 13:15 11/26/24 13:15 Temperature 98.3 F Pulse Rate 95 H 97 H Respiratory Rate 17 19 Blood Pressure 99/54 L 107/65 Pulse Oximetry 100 Oxygen Delivery Method 11/26/24 13:27 11/26/24 13:27 11/26/24 13:30 Temperature 98.5 F Pulse Rate 98 H 96 H Respiratory Rate 14 Blood Pressure 102/67 103/58 L Pulse Oximetry 100 Oxygen Delivery Method 11/26/24 13:30 11/26/24 13:30 11/26/24 13:45 Temperature Pulse Rate 95 H Respiratory Rate 19 Blood Pressure 103/58 L 102/65 Pulse Oximetry 100 Oxygen Delivery Method 11/26/24 13:45 11/26/24 14:00 11/26/24 14:00 Temperature Pulse Rate 99 H 94 H Respiratory Rate 20 20 Blood Pressure 130/78 Pulse Oximetry 100 98 Oxygen Delivery Method Room Air Room Air MDM - Weakness Lab Data 11/26/24 08:45 11/26/24 08:45 Labs: Lab Results 11/26/24 11/26/24 Range/Units 08:45 09:17 WBC 7.8 (4.5-11.0) X10^3/uL RBC 2.24 L (4.0-5.2) X10^6/uL Hgb 6.7 L* (12.0-16.0) g/dL Hct 19.9 L* (36-46) % MCV 88.6 (80-100) fL MCH 29.8 (26-34) PG MCHC 33.6 (30-36) % RDW 14.2 (11.6-14.8) % Plt Count 159 (150-400) X10^3/uL Neut % (Auto) 62.5 (50-75) % Lymph % (Auto) 25.6 (25-40) % Morrow % (Auto) 9.1 (3-14) % Eos % (Auto) 2.4 (2-4) % Baso % (Auto) 0.4 (0-2) % Neut # (Auto) 4900 (6485-1023) /uL Lymph # (Auto) 2000 (5776-7405) /uL Morrow # (Auto) 700 (0-900) /uL Eos # (Auto) 200 (0-450) /uL Baso # (Auto) 0 (0-100) /uL PT 12.5 (9.4-12.5) SECONDS INR 1.1 (0.9-1.3) APTT 29 (25.1-36.5) SECONDS Sodium 136 L (137-145) mmol/L Potassium 4.6 (3.4-5.1) mmol/L Chloride 105 (98-107) mmol/L Carbon Dioxide 26 (22-32) mmol/L BUN 40 H (7-17) mg/dL Creatinine 0.77 (0.52-1.04) mg/dL Estimated GFR > 60 (>60) mL/min BUN/Creatinine Ratio 51.9 H (6-22) Glucose 188 H (80-110) mg/dL Calcium 8.4 (8.4-10.2) mg/dL Magnesium 1.7 (1.6-2.3) mg/dL Total Bilirubin 0.1 L (0.2-1.3) mg/dL AST 45 H (14-36) IU/L ALT 75 H (<35) IU/L Alkaline Phosphatase 160 H (38-126) U/L Total Creatine Kinase < 20 L (30-135) U/L Troponin I < 0.012 (0.01-0.034) ng/mL NT-Pro-B Natriuret Pep 462 H (<450) pg/mL Total Protein 5.3 L (6.3-8.2) g/dL Albumin 2.9 L (3.5-5.0) g/dL Globulin 2.4 (1.7-4.1) g/dL Albumin/Globulin Ratio 1.2 (1.0-2.8) Lipase 10 L (23-300) U/L Blood Type O Negative Antibody Screen Negative Crossmatch See Detail Imaging Data CT scan - abdomen/pelvis: Radiologist Impression: PROCEDURE: CT ABDOMEN PELVIS W CON INDICATIONS: [pancreatic stent and cancer TECHNIQUE: After the administration of intravenous contrast, axial sections acquired from the lung bases to the pubic symphysis. Coronal and sagittal reformats were performed. For radiation dose reduction, the following was used: automated exposure control, adjustment of mA and/or kV according to patient size. COMPARISON: [facility], CR, XR ERCP BILIARY AND PANCREATIC, 06/09/2024, 15:36. [facility], CT, CT ABDOMEN PANCREATIC PROTOCOL, 05/30/2022, 14:29. [facility], CT, CT HEAD/BRAIN WO CON, 11/26/2024, 9:28. [facility], CR, XR CHEST 1V, 11/26/2024, 8:36. [facility], CT, CT ABDOMEN PELVIS W CON, 05/21/2022, 14:06. FINDINGS: Image quality: Diagnostic. Lower Chest: A chest port tip can be seen within the right atrium. ABDOMEN: Liver: No solid mass. Gallbladder: No radiopaque gallstones or wall thickening. Biliary ducts: A metallic biliary stent is seen in place. Associated mild biliary gas can be seen within the liver. Pancreas: A known pancreatic head mass is seen, with surrounding infiltration. The majority of the pancreas is atrophic, with pancreatic ductal dilatation, measuring 8 mm. Spleen: Size is within normal limits. Adrenal Glands: No adrenal nodules. Kidneys and Ureters: No hydronephrosis. No solid mass. No complex renal cystic lesion which requires follow up. Stomach and Bowel: There is a metallic stent seen involving the distal stomach and the proximal duodenum. The distal end of this stent appears flush against the wall of the duodenum, not facing the lumen. A moderate volume of fluid is seen within the stomach. No dilated loops of small bowel are seen. Generalized wall thickening can be seen involving the small bowel. No significant colonic abnormality is seen. Peritoneum: No abnormal intraperitoneal fluid. No free air. Ventral Wall: No significant ventral hernia. Abdominal Nodes: Prominent rita hepatis lymph nodes can be seen. No enlarged retroperitoneal lymph nodes are seen. Vessels: The portal vein is highly narrowed, as on series 2, image 36. Aorta and inferior vena cava are normal in size. PELVIS: Pelvic Organs: Unremarkable. Bladder: No bladder wall thickening, accounting for underdistention. Pelvic Nodes: No enlarged lymph nodes. Miscellaneous: No inguinal hernias are seen. Bones: No aggressive osseous abnormality. Dextroconvex thoracolumbar scoliosis is seen. Multiple levels of significant degenerative change can be seen. IMPRESSION: Pancreatic head mass, with surrounding infiltration. 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 The majority of the pancreas is atrophic. Pancreatic ductal dilatation is seen measuring 8 mm. There is a biliary stent seen in place, with associated biliary gas. There is a stent seen within the distal stomach and proximal duodenum. The distal end of this stent appears flush against the wall of the duodenum, not facing the lumen. A degree of obstruction is suspected at this site, with a moderate volume of fluid seen within the stomach. Additional findings: Tip of the chest port within the right atrium CT scan - head: Radiologist Impression: PROCEDURE: CT HEAD/BRAIN WO CON INDICATIONS: falls with pancreatic cancer TECHNIQUE: Noncontrast 4.5 mm thick angled axial sections acquired from the foramen magnum to the vertex, with coronal and sagittal reformats. For radiation dose reduction, the following was used: automated exposure control, adjustment of mA and/or kV according to patient size. COMPARISON: [facility], CR, XR CHEST 1V, 11/26/2024, 8:36. [facility], CT, CT ABDOMEN PELVIS W CON, 11/26/2024, 9:31. FINDINGS: Image quality: Diagnostic. CSF spaces: Basal cisterns are patent. No extra-axial fluid collections. The ventricles are symmetric in size and shape. Brain: No intracranial bleeds or masses. There is cerebral volume loss for age, with resultant ventricular and sulcal prominence. There are periventricular and deep white matter chronic small vessel ischemic changes. There is intracranial internal carotid artery atherosclerosis. Skull and face: Calvarium and visualized facial bones appear intact, without suspicious lesions. Sinuses: Visualized sinuses and mastoids are clear. IMPRESSION: No acute intracranial hemorrhage is seen. No acute intracranial pathology. Dictated by: Wisam Gregg M.D. 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 Differential considered: Dehydration anemia metastatic cancer sepsis Exam documented above, pertinent findings include: Weak alert 83-year-old female no focal deficits abdomen soft nontender guaiac-positive Lab Test results independently reviewed as above. Pertinent findings: Hemoglobin 6.7 hematocrit 19.9, according to be a.m. on November 16 she had a hemoglobin of 9.8 WBC 7.8 Sodium 136 potassium 4.6 chloride 105 carbon dioxide 26 BUN 40 creatinine 0.7 Bilirubin 0.1 AST 45 ALT 75 alk-phos 160 lipase 10 Independently reviewed EKG as above Sinus rhythm no ischemia no priors to compare Imaging studies independently reviewed: CT abdomen pelvis pancreatic head mass surrounding infiltration high-grade narrowing in portal vein worse than on prior imaging in 2021 no recent imaging There is a stent distal stomach and proximal duodenum distal end of stent appears flushed against the wall of the duodenum a degree of obstruction is suspected at this site moderate volume of fluid seen in stomach CT head no intracranial process Consultations: 12:41 [facility] accepts to for transfer Treatments: 1 unit packed red blood cell, Protonix 80 mg Discussion: 83-year-old female history of pancreatic cancer currently undergoing chemotherapy this is recurrent pancreatic cancer presenting today with increasing weakness. She is found to be anemic with a hemoglobin 6.7. She has no active bleeding or bleeding symptoms. She does have a lower blood pressure with a systolic in the 100s. She has not pancytopenic or neutropenic. She denies any black stool vomiting or bright red blood loss, she was guaiac positive. At this time with her duodenal stents pancreatic cancer care at [facility] unavailable here at this hospital seems appropriate to transfer for continuity of care and possible GI evaluation. She started receiving 1 unit of packed red blood cells here she received Protonix. Critical Care Time Critical Care Time Critical Care Time: Yes Total Critical Care Time: 31 Attestation: The high probability of a clinically significant, sudden or life threatening deterioration of the [cardiovascular] system(s) required my full and direct attention, intervention and personal management. The aggregate critical care time was 31 minutes. This time is in addition to time spent performing reported procedures but includes the following: [x] Data Review and interpretation [x] Patient assessment and monitoring of vital signs [x] Documentation [x] Medication orders and management Discharge Plan Departure Patient Disposition: [facility] Clinical Impression: Acute GI bleeding, Anemia Prescriptions: No Action cyclobenzaprine 5 mg tablet 5 mg PO TID PRN (Reason: muscle spasm) Qty: 12 0RF Creon 36,000-114,000- 180,000 unit capsule,delayed release(DR/EC) 2 cap PO TID Qty: 120 1RF Rx Instructions: administer with meals and/or snacks metoprolol tartrate 25 mg tablet 25 mg PO BID Qty: 180 1RF sennosides [senna] 8.6 mg tablet PO morphine 15 mg tablet See Rx Instructions PO ONCE Qty: 1 0RF Rx Instructions: 15,000mg PO/MD once (MAID) phenobarbital 15 mg tablet See Rx Instructions PO ONCE Qty: 1 0RF Rx Instructions: 5,000mg PO/MD once (MAID) digoxin 125 mcg (0.125 mg) tablet See Rx Instructions PO ONCE Qty: 1 0RF Rx Instructions: 100mg PO/MD once (MAID) mirtazapine 7.5 mg tablet 7.5 mg PO BEDTIME Qty: 30 1RF aspirin 81 mg tablet,delayed release (DR/EC) 81 mg PO DAILY lorazepam 0.5 mg tablet 0.5 mg PO DAILY PRN (Reason: anxiety or sleep) Qty: 30 3RF cyclobenzaprine 10 mg tablet 10 mg PO TID Qty: 20 0RF Referrals: Fidel Antonio MD [Primary Care Provider] - Stand Alone Forms: Patient Portal/API/Survey
[2024-11-26 09:03] LABS: PTT Partial Thromboplastin Tim 29 SECONDS (25.1-36.5)
[2024-11-26 09:08] LABS: Add Manual Diff / Slide Review NO; Basophils Absolute Auto 0 /uL (0-100); Basophils Percent Auto 0.4 % (0-2); Eosinophils Absolute Auto 200 /uL (0-450); Eosinophils Percent Auto 2.4 % (2-4); Lymphocytes Absolute Auto 2000 /uL (1100-4500); Lymphocytes Percent Auto 25.6 % (25-40); Mean Corpuscular HGB Conc 33.6 % (30-36); Mean Corpuscular Hemoglobin 29.8 PG (26-34); Mean Corpuscular Volume 88.6 fL (80-100); Monocytes Absolute Auto 700 /uL (0-900); Monocytes Percent Auto 9.1 % (3-14); Neutrophils Absolute Auto 4900 /uL (1500-7000); Neutrophils Percent Auto 62.5 % (50-75); Platelet Count 159 X10^3/uL (150-400); Red Blood Cell Count 2.24 X10^6/uL (4.0-5.2); Red Cell Distribution Width 14.2 % (11.6-14.8); White Blood Cell Count 7.8 X10^3/uL (4.5-11.0)
[2024-11-26 09:10] LABS: Hematocrit 19.9 % (36-46); Hemoglobin 6.7 g/dL (12.0-16.0)
--- NOTE | 2024-11-26 09:10 | DI.CT.S_ITS ---
PROCEDURE: CT HEAD/BRAIN WO CON INDICATIONS: falls with pancreatic cancer TECHNIQUE: Noncontrast 4.5 mm thick angled axial sections acquired from the foramen magnum to the vertex, with coronal and sagittal reformats. For radiation dose reduction, the following was used: automated exposure control, adjustment of mA and/or kV according to patient size. COMPARISON: [facility], CR, XR CHEST 1V, 11/26/2024, 8:36. [facility], CT, CT ABDOMEN PELVIS W CON, 11/26/2024, 9:31. FINDINGS: Image quality: Diagnostic. CSF spaces: Basal cisterns are patent. No extra-axial fluid collections. The ventricles are symmetric in size and shape. Brain: No intracranial bleeds or masses. There is cerebral volume loss for age, with resultant ventricular and sulcal prominence. There are periventricular and deep white matter chronic small vessel ischemic changes. There is intracranial internal carotid artery atherosclerosis. Skull and face: Calvarium and visualized facial bones appear intact, without suspicious lesions. Sinuses: Visualized sinuses and mastoids are clear. IMPRESSION: No acute intracranial hemorrhage is seen. No acute intracranial pathology. Dictated by: Wisam Gregg M.D. on 11/26/2024 at 8:52 Approved by: Wisam Gregg M.D. on 11/26/2024 at 8:53
[2024-11-26 09:12] LABS: Alanine Aminotransferase 75 IU/L (<35); Albumin 2.9 g/dL (3.5-5.0); Albumin Globulin Ratio 1.2 (1.0-2.8); Alkaline Phosphatase 160 U/L (38-126); Aspartate Aminotransferase 45 IU/L (14-36); BUN Creatinine Ratio 51.9 (6-22); Bilirubin Total 0.1 mg/dL (0.2-1.3); Blood Urea Nitrogen 40 mg/dL (7-17); Calcium 8.4 mg/dL (8.4-10.2); Carbon Dioxide 26 mmol/L (22-32); Chloride 105 mmol/L (98-107); Creatine Kinase < 20 U/L (30-135); Estimated Glomerular Filt Rate > 60 mL/min (>60); Globulin 2.4 g/dL (1.7-4.1); Glucose 188 mg/dL (80-110); HEMOLYSIS < 15 (0-50); Lipase 10 U/L (23-300); Magnesium 1.7 mg/dL (1.6-2.3); Potassium 4.6 mmol/L (3.4-5.1); Sodium 136 mmol/L (137-145); Total Protein 5.3 g/dL (6.3-8.2)
--- NOTE | 2024-11-26 09:15 | DI.CT.S_ITS ---
PROCEDURE: CT ABDOMEN PELVIS W CON INDICATIONS: [pancreatic stent and cancer TECHNIQUE: After the administration of intravenous contrast, axial sections acquired from the lung bases to the pubic symphysis. Coronal and sagittal reformats were performed. For radiation dose reduction, the following was used: automated exposure control, adjustment of mA and/or kV according to patient size. COMPARISON: [facility], CR, XR ERCP BILIARY AND PANCREATIC, 06/09/2024, 15:36. [facility], CT, CT ABDOMEN PANCREATIC PROTOCOL, 05/30/2022, 14:29. [facility], CT, CT HEAD/BRAIN WO CON, 11/26/2024, 9:28. [facility], CR, XR CHEST 1V, 11/26/2024, 8:36. [facility], CT, CT ABDOMEN PELVIS W CON, 05/21/2022, 14:06. FINDINGS: Image quality: Diagnostic. Lower Chest: A chest port tip can be seen within the right atrium. ABDOMEN: Liver: No solid mass. Gallbladder: No radiopaque gallstones or wall thickening. Biliary ducts: A metallic biliary stent is seen in place. Associated mild biliary gas can be seen within the liver. Pancreas: A known pancreatic head mass is seen, with surrounding infiltration. The majority of the pancreas is atrophic, with pancreatic ductal dilatation, measuring 8 mm. Spleen: Size is within normal limits. Adrenal Glands: No adrenal nodules. Kidneys and Ureters: No hydronephrosis. No solid mass. No complex renal cystic lesion which requires follow up. Stomach and Bowel: There is a metallic stent seen involving the distal stomach and the proximal duodenum. The distal end of this stent appears flush against the wall of the duodenum, not facing the lumen. A moderate volume of fluid is seen within the stomach. No dilated loops of small bowel are seen. Generalized wall thickening can be seen involving the small bowel. No significant colonic abnormality is seen. Peritoneum: No abnormal intraperitoneal fluid. No free air. Ventral Wall: No significant ventral hernia. Abdominal Nodes: Prominent rita hepatis lymph nodes can be seen. No enlarged retroperitoneal lymph nodes are seen. Vessels: The portal vein is highly narrowed, as on series 2, image 36. Aorta and inferior vena cava are normal in size. PELVIS: Pelvic Organs: Unremarkable. Bladder: No bladder wall thickening, accounting for underdistention. Pelvic Nodes: No enlarged lymph nodes. Miscellaneous: No inguinal hernias are seen. Bones: No aggressive osseous abnormality. Dextroconvex thoracolumbar scoliosis is seen. Multiple levels of significant degenerative change can be seen. IMPRESSION: Pancreatic head mass, with surrounding infiltration. 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 The majority of the pancreas is atrophic. Pancreatic ductal dilatation is seen measuring 8 mm. There is a biliary stent seen in place, with associated biliary gas. There is a stent seen within the distal stomach and proximal duodenum. The distal end of this stent appears flush against the wall of the duodenum, not facing the lumen. A degree of obstruction is suspected at this site, with a moderate volume of fluid seen within the stomach. Additional findings: Tip of the chest port within the right atrium Dextroconvex scoliosis Dictated by: Wisam Gregg M.D. on 11/26/2024 at 8:53 Approved by: Wisam Gregg M.D. on 11/26/2024 at 9:02
[2024-11-26 09:23] LABS: NT-proBNP (BNP-Adult 18+) 462 pg/mL (<450); Troponin I < 0.012 ng/mL (0.01-0.034)
[2024-11-26] MEDS: PANTOPRAZOLE 40 MG VIAL 80 MG IV (13:06)
== END 2024-11-26 15:04 | disposition short-term general hospital (02) ==
PROVIDERS: Emergency Provider Emergency Medicine; PCP Internal Medicine
DX: K92.2 Gastrointestinal hemorrhage, unspecified (principal); D64.9 Anemia, unspecified; I48.91 Unspecified atrial fibrillation; Z79.82 Long term (current) use of aspirin; C25.9 Malignant neoplasm of pancreas, unspecified; R29.6 Repeated falls; Z96.89 Presence of other specified functional implants
CPT/HCPCS: 36415; 36430; 70450; 71045; 74177; 80053; 82550; 83690; 83735; 83880; 84484; 85025; 85610; 85730; 86850; 86900; 86901; 93005; 93010; 96374; 99285; 99291; P9016; J2470; Q9967

== ENCOUNTER 2024-11-29 17:26 | Emergency (ER) | payer MEDICARE, OTHER, SELFPAY ==
[2024-11-29] VITALS (14 sets, daily range): BP systolic 101–135; BP diastolic 56–79; PULSE 80–104; RESP 14–32; TEMP 37; O2SAT 89–98; BMI 17.6
--- NOTE | 2024-11-29 17:39 | EKG_ITS ---
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
[2024-11-29] MEDS: PANTOPRAZOLE 40 MG VIAL 80 MG IV (17:45)
[2024-11-29 17:47] LABS: Add Manual Diff / Slide Review NO; Basophils Absolute Auto 100 /uL (0-100); Basophils Percent Auto 0.5 % (0-2); Eosinophils Absolute Auto 200 /uL (0-450); Eosinophils Percent Auto 1.6 % (2-4); Hematocrit 26.2 % (36-46); Hemoglobin 8.6 g/dL (12.0-16.0); Lymphocytes Absolute Auto 2600 /uL (1100-4500); Lymphocytes Percent Auto 23.1 % (25-40); Mean Corpuscular HGB Conc 32.9 % (30-36); Mean Corpuscular Hemoglobin 29.4 PG (26-34); Mean Corpuscular Volume 89.5 fL (80-100); Monocytes Absolute Auto 1500 /uL (0-900); Monocytes Percent Auto 13.3 % (3-14); Neutrophils Absolute Auto 7000 /uL (1500-7000); Neutrophils Percent Auto 61.5 % (50-75); Platelet Count 330 X10^3/uL (150-400); Red Blood Cell Count 2.93 X10^6/uL (4.0-5.2); Red Cell Distribution Width 14.6 % (11.6-14.8); White Blood Cell Count 11.3 X10^3/uL (4.5-11.0)
[2024-11-29 17:53] LABS: Prothrombin Time 11.8 SECONDS (9.4-12.5)
[2024-11-29 17:56] LABS: PTT Partial Thromboplastin Tim 32 SECONDS (25.1-36.5)
[2024-11-29 18:05] LABS: Alanine Aminotransferase 42 IU/L (<35); Albumin 3.4 g/dL (3.5-5.0); Albumin Globulin Ratio 1.4 (1.0-2.8); Alkaline Phosphatase 118 U/L (38-126); Aspartate Aminotransferase 32 IU/L (14-36); BUN Creatinine Ratio 27.1 (6-22); Bilirubin Total 0.1 mg/dL (0.2-1.3); Blood Urea Nitrogen 29 mg/dL (7-17); Calcium 8.6 mg/dL (8.4-10.2); Carbon Dioxide 25 mmol/L (22-32); Chloride 107 mmol/L (98-107); Estimated Glomerular Filt Rate 52 mL/min (>60); Globulin 2.4 g/dL (1.7-4.1); Glucose 129 mg/dL (80-110); HEMOLYSIS < 15 (0-50); Potassium 3.8 mmol/L (3.4-5.1); Sodium 138 mmol/L (137-145); Total Protein 5.8 g/dL (6.3-8.2)
--- NOTE | 2024-11-29 19:18 | PC.NURSE ---
Updated the patient and introduced myself to patient and her
--- NOTE | 2024-11-29 22:38 | ED.WEAKNESS ---
HPI - Weakness General Chief complaint: Weakness Stated complaint: low blood sugar, weakness Time Seen by Provider: 11/29/24 18:34 Source: patient Mode of arrival: Wheelchair History of Present Illness HPI Narrative: 83-year-old female recently transferred to [facility] for upper GI bleeding, had hemoglobin 6.7, initial transfusion, was transferred to [facility] where she had upper endoscopy and cautery of duodenal bleeding ulcer, and had additional transfusion 1 unit for total of 2 unit transfusion. She was discharge from their hospital this morning, and transition to her home. While walking around at home she felt that she had generalized weakness. No new episode of black or red stools, no nausea or vomiting. She has not been eating or drinking much during hospital stay. She called the office of her PCP and described her weakness, who advised patient to come here in case she were to need further transfusion. Related Data Home Medications Medication Instructions Recorded Confirmed sennosides 8.6 mg tablet (senna) mg PO 08/10/24 10/25/24 aspirin 81 mg tablet,delayed 81 mg PO DAILY 08/31/24 10/25/24 release Previous Rx's Medication Instructions Recorded [id number] 2 cap PO TID #120 caps 05/17/24 36,000-114,000-180,000 unit capsule,delay rel (Creon) digoxin 125 mcg (0.125 mg) tablet See Rx Instructions PO ONCE #1 tab 06/15/24 morphine 15 mg immediate release See Rx Instructions PO ONCE #1 tab 06/15/24 tablet phenobarbital 15 mg tablet See Rx Instructions PO ONCE #1 tab 06/15/24 metoprolol tartrate 25 mg tablet 25 mg PO BID #180 tabs 08/10/24 lorazepam 0.5 mg tablet 0.5 mg PO DAILY PRN anxiety or 08/31/24 sleep #30 tabs cyclobenzaprine 5 mg tablet 5 mg PO TID PRN muscle spasm #12 10/13/24 tabs cyclobenzaprine 10 mg tablet 10 mg PO TID #20 tabs 10/15/24 mirtazapine 7.5 mg tablet 7.5 mg PO BEDTIME #30 tabs 10/19/24 Allergies Allergy/AdvReac Type Severity Reaction Status Date / Time No Known Drug Allergies Allergy Verified 11/29/24 17:40 Patient History Medical History Atrial fibrillation with rapid ventricular response Do not resuscitate Partial gastric outlet obstruction Essential hypertension Mitral regurgitation Mixed hyperlipidemia Pancreatic cancer Social History details: , 3 children, 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, 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, 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 Smoking Status: Never smoker Smoking Status: Never smoker alcohol intake frequency: a few times a week Exam Initial Vital Signs Initial Vital Signs: Vital Signs Temperature 98.6 F 11/29/24 17:27 Pulse Rate 104 H 11/29/24 17:27 Respiratory Rate 14 11/29/24 17:27 Blood Pressure 135/67 11/29/24 17:27 Pulse Oximetry 94 11/29/24 17:27 Oxygen Delivery Method Room Air 11/29/24 17:27 Course Orders Ordered: Discontinued Medications Ondansetron HCl (Ondansetron 4 Mg/2 Ml Inj) 4 mg IV NOW PRN PRN Reason: Nausea And Vomiting Ondansetron HCl (Ondansetron 4 Mg Odt) 4 mg SL NOW PRN PRN Reason: Nausea And Vomiting Pantoprazole Sodium (Pantoprazole 40 Mg Vial) 80 mg IV NOW ONE Stop: 11/29/24 17:40 Last Admin: 11/29/24 17:45 Dose: 80 mg Documented By: Vital Signs Vital signs: Vital Signs - 8 hr 11/29/24 17:27 11/29/24 18:00 11/29/24 18:00 Temperature 98.6 F Pulse Rate 104 H 88 Respiratory Rate 14 18 Blood Pressure 135/67 117/68 Pulse Oximetry 94 95 Oxygen Delivery Method Room Air 11/29/24 18:30 11/29/24 18:30 11/29/24 19:00 Temperature Pulse Rate 82 83 Respiratory Rate 22 21 Blood Pressure 109/63 Pulse Oximetry 92 89 L Oxygen Delivery Method 11/29/24 19:00 11/29/24 19:30 11/29/24 19:30 Temperature Pulse Rate 82 Respiratory Rate 20 Blood Pressure 112/63 112/59 L Pulse Oximetry 98 Oxygen Delivery Method 11/29/24 20:00 11/29/24 20:00 11/29/24 20:15 Temperature Pulse Rate 85 Respiratory Rate 18 Blood Pressure 109/61 Pulse Oximetry 98 98 Oxygen Delivery Method Room Air 11/29/24 20:30 11/29/24 20:30 11/29/24 21:00 Temperature Pulse Rate 84 82 Respiratory Rate 25 H 15 Blood Pressure 101/58 L Pulse Oximetry 98 98 Oxygen Delivery Method 11/29/24 21:00 11/29/24 21:30 11/29/24 21:30 Temperature Pulse Rate 84 Respiratory Rate 32 H Blood Pressure 107/56 L 105/79 Pulse Oximetry 98 Oxygen Delivery Method MDM - Weakness Lab Data Attestation: I reviewed the patient's lab results. Lab results narrative: White blood cell count 99779, hemoglobin 8.6, platelets 330,000. BUN 29 with creatinine 1.07. Glucose 129. Sodium 138, potassium 3.8, serum CO2 25, chloride 107. Liver functions unremarkable. 11/29/24 17:38 11/29/24 17:38 Labs: Lab Results 11/29/24 Range/Units 17:38 WBC 11.3 H (4.5-11.0) X10^3/uL RBC 2.93 L (4.0-5.2) X10^6/uL Hgb 8.6 L (12.0-16.0) g/dL Hct 26.2 L (36-46) % MCV 89.5 (80-100) fL MCH 29.4 (26-34) PG MCHC 32.9 (30-36) % RDW 14.6 (11.6-14.8) % Plt Count 330 (150-400) X10^3/uL Neut % (Auto) 61.5 (50-75) % Lymph % (Auto) 23.1 L (25-40) % [place] % (Auto) 13.3 (3-14) % Eos % (Auto) 1.6 L (2-4) % Baso % (Auto) 0.5 (0-2) % Neut # (Auto) 7000 (3670-3560) /uL Lymph # (Auto) 2600 (8670-3421) /uL [place] # (Auto) 1500 H (0-900) /uL Eos # (Auto) 200 (0-450) /uL Baso # (Auto) 100 (0-100) /uL PT 11.8 (9.4-12.5) SECONDS INR 1.0 (0.9-1.3) APTT 32 (25.1-36.5) SECONDS Sodium 138 (137-145) mmol/L Potassium 3.8 (3.4-5.1) mmol/L Chloride 107 (98-107) mmol/L Carbon Dioxide 25 (22-32) mmol/L BUN 29 H (7-17) mg/dL Creatinine 1.07 H (0.52-1.04) mg/dL Estimated GFR 52 L (>60) mL/min BUN/Creatinine Ratio 27.1 H (6-22) Glucose 129 H (80-110) mg/dL Calcium 8.6 (8.4-10.2) mg/dL Total Bilirubin 0.1 L (0.2-1.3) mg/dL AST 32 (14-36) IU/L ALT 42 H (<35) IU/L Alkaline Phosphatase 118 (38-126) U/L Total Protein 5.8 L (6.3-8.2) g/dL Albumin 3.4 L (3.5-5.0) g/dL Globulin 2.4 (1.7-4.1) g/dL Albumin/Globulin Ratio 1.4 (1.0-2.8) Blood Type O Negative Antibody Screen Negative Point of Care Testing Glucose POC 144 ECG Data Attestation: I personally reviewed and interpreted this ECG as follows: Interpretation: Wide complex rhythm that is regular, rate 79. Left anterior fascicular block. QRS 120, QTC 442. MDM Narrative Medical decision making narrative: 83-year-old female with recent upper GI bleeding status post upper endoscopy cautery of duodenal lesion, total transfusion 2 units by her report. Now with generalized weakness at home, called her PCP who advised recheck in case she might need further transfusion. No ongoing bleeding known. Labs today: White blood cell count 96173, hemoglobin 8.6, platelets 330,000. BUN 29 with creatinine 1.07. Glucose 129. Sodium 138, potassium 3.8, serum CO2 25, chloride 107. Liver functions unremarkable. Reassuring hemoglobin, well above 7.0 threshold for further transfusion, no active new GI bleeding by history or examination. Patient would like to go home. Further workup as an outpatient. Patient will call office of her PCP Dr. Antonio tomorrow to arrange her close follow up hospitalization visit. Discharge Plan Departure Patient Disposition: Home Clinical Impression: Generalized weakness, History of anemia, History of upper gastrointestinal hemorrhage Activity Restrictions/Additional Instructions: Ms. Carver, You had recent upper gastrointestinal bleeding, recent transfusion of 2 units packed red blood cells, transferred to [facility] for upper endoscopy treatment, reported treatment of duodenal ulcer, released this morning. While at home you had some weakness symptoms. Concern for possible need for further transfusion, here for blood testing and evaluation. Vital signs here or reassuring. Repeat hemoglobin here was 8.6, well above the usual threshold 7.0 for further blood transfusion of packed red cells. Neurological exam was reassuring. Other blood tests including glucose and electrolytes were also reassuring. You had not been eating or drinking and recent days due to all the of the evaluation for your gastrointestinal bleeding, it could be possible that you were are decongestion and slightly malnourished from his recent or deal. Encouraged to go home and eat and drink fluids. Call the office of your regular doctor tomorrow to expedite close hospitalization follow up. Continue your chronic medications as planned. Return earlier to this/nearest emergency department for any change worsening symptoms or any concerns prior. Take the new prescription pantoprazole antacid medication prescribed from [facility] as planned. Thank you for allowing our team to evaluate you today. Prescriptions: No Action cyclobenzaprine 5 mg tablet 5 mg PO TID PRN (Reason: muscle spasm) Qty: 12 0RF Creon 36,000-114,000- 180,000 unit capsule,delayed release(DR/EC) 2 cap PO TID Qty: 120 1RF Rx Instructions: administer with meals and/or snacks metoprolol tartrate 25 mg tablet 25 mg PO BID Qty: 180 1RF sennosides [senna] 8.6 mg tablet PO morphine 15 mg tablet See Rx Instructions PO ONCE Qty: 1 0RF Rx Instructions: 15,000mg PO/MI once (MAID) phenobarbital 15 mg tablet See Rx Instructions PO ONCE Qty: 1 0RF Rx Instructions: 5,000mg PO/MI once (MAID) digoxin 125 mcg (0.125 mg) tablet See Rx Instructions PO ONCE Qty: 1 0RF Rx Instructions: 100mg PO/MI once (MAID) mirtazapine 7.5 mg tablet 7.5 mg PO BEDTIME Qty: 30 1RF aspirin 81 mg tablet,delayed release (DR/EC) 81 mg PO DAILY lorazepam 0.5 mg tablet 0.5 mg PO DAILY PRN (Reason: anxiety or sleep) Qty: 30 3RF cyclobenzaprine 10 mg tablet 10 mg PO TID Qty: 20 0RF Referrals: Fidel Antonio MD [Primary Care Provider] - Stand Alone Forms: Patient Portal/API/Survey
--- NOTE | 2024-11-29 23:02 | PC.NURSE ---
physician in room
== END 2024-11-29 23:08 | disposition home or self-care (01) ==
PROVIDERS: Emergency Medicine; Emergency Provider Emergency Medicine; PCP Internal Medicine
DX: R53.1 Weakness (principal); D64.9 Anemia, unspecified; Z87.19 Personal history of other diseases of the digestive system; I44.7 Left bundle-branch block, unspecified
CPT/HCPCS: 36415; 80053; 82962; 85025; 85610; 85730; 86850; 86900; 86901; 93005; 96374; 99284; J2470

== ENCOUNTER → 2024-12-03 12:44 | Outpatient (CLI) | payer MEDICARE, OTHER, SELFPAY ==
[2024-12-03 13:07] LABS: Hematocrit 24.2 % (36-46); Hemoglobin 8.1 g/dL (12.0-16.0); Mean Corpuscular HGB Conc 33.5 % (30-36); Mean Corpuscular Hemoglobin 29.7 PG (26-34); Mean Corpuscular Volume 88.7 fL (80-100); Platelet Count 364 X10^3/uL (150-400); Red Blood Cell Count 2.73 X10^6/uL (4.0-5.2); Red Cell Distribution Width 14.6 % (11.6-14.8); White Blood Cell Count 8.6 X10^3/uL (4.5-11.0)
== END ==
LOC: LAB 12:46
PROVIDERS: PCP Internal Medicine; Referring Provider Internal Medicine; Visit Provider Internal Medicine
DX: K92.2 Gastrointestinal hemorrhage, unspecified (principal); D64.9 Anemia, unspecified
CPT/HCPCS: 36415; 85027

== ENCOUNTER → 2024-12-06 11:50 | Outpatient (CLI) | payer MEDICARE, OTHER, SELFPAY ==
--- NOTE | 2024-12-06 11:52 | DI.RAD.S_ITS ---
PROCEDURE: XR ANKLE RT MIN 3V INDICATIONS: Right foot and ankle injury TECHNIQUE: 3 views of the ankle were acquired. COMPARISON: [facility], , XR FOOT RT MIN 3V, 12/06/2024, 11:49. FINDINGS: Bones: No fractures or dislocations. Ankle mortise is normally aligned. No suspicious bony lesions. Soft tissues: No tibiotalar joint effusion. Achilles tendon appears normal. IMPRESSION: No visualized acute fracture or dislocation. However, if clinical concern and/or pain persist, short interval imaging followup in 7-10 days is recommended, as occult injury cannot be definitively excluded. Dictated by: Sunni Callahan M.D. on 12/06/2024 at 12:18 Approved by: Sunni Callahan M.D. on 12/06/2024 at 12:18
--- NOTE | 2024-12-06 11:52 | DI.RAD.S_ITS ---
PROCEDURE: XR FOOT RT MIN 3V INDICATIONS: Right foot and ankle injury TECHNIQUE: 3 views of the foot were acquired. COMPARISON: [facility], CR, XR ANKLE RT MIN 3V, 12/06/2024, 11:49. FINDINGS: Bones: No fractures or dislocations. No suspicious bony lesions. Soft tissues: No tibiotalar joint effusion. Achilles tendon appears normal. IMPRESSION: No visualized acute fracture or dislocation. However, if clinical concern and/or pain persist, short interval imaging followup in 7-10 days is recommended, as occult injury cannot be definitively excluded. Dictated by: Sunni Callahan M.D. on 12/06/2024 at 12:17 Approved by: Sunni Callahan M.D. on 12/06/2024 at 12:18
== END ==
PROVIDERS: PCP Internal Medicine; Referring Provider Physician Assistant Surgical; Visit Provider Physician Assistant Surgical
DX: S99.921A Unspecified injury of right foot, initial encounter (principal); S99.911A Unspecified injury of right ankle, initial encounter; X58.XXXA Exposure to other specified factors, initial encounter
CPT/HCPCS: 73610; 73630

== ENCOUNTER 2025-04-24 12:16 | Emergency (ER) | payer MEDICARE, OTHER, SELFPAY ==
[2025-04-24] VITALS (8 sets, daily range): BP systolic 111–122; BP diastolic 61–73; PULSE 71–93; RESP 16–18; TEMP 37; O2SAT 95–99; BMI 17.2
--- NOTE | 2025-04-24 13:27 | EKG_ITS ---
[place] [id number] [place] [id number] Test Date: 2025-04-24 Pat Name: Ana Carver Department: [facility] Room: Gender: Female Reception Clerk: LOAN : 1940 Requested By: Order Number: [id number] Reading MD: Don Andujar Measurements Intervals [place] Rate: 75 P: 36 IA: 146 QRS: -42 QRSD: 114 T: 68 QT: 402 QTc: 448 Interpretive Statements Normal sinus rhythm Left axis deviation Left ventricular hypertrophy with repolarization abnormality ( R in aVL , Nav product ) Cannot rule out Septal infarct , age undetermined Electronically Signed On 04-26-2025 13:51:08 PDT by Don Andujar
[2025-04-24 13:41] LABS: Hematocrit 30.1 % (36-46); Hemoglobin 9.7 g/dL (12.0-16.0); Mean Corpuscular HGB Conc 32.2 % (30-36); Mean Corpuscular Hemoglobin 25.3 PG (26-34); Mean Corpuscular Volume 78.8 fL (80-100); Platelet Count 280 X10^3/uL (150-400)
[2025-04-24 13:48] LABS: Add Manual Diff / Slide Review YES
[2025-04-24 13:52] LABS: Alanine Aminotransferase 209 IU/L (<35); Albumin 3.8 g/dL (3.5-5.0); Albumin Globulin Ratio 1.3 (1.0-2.8); Alkaline Phosphatase 596 U/L (38-126); Blood Urea Nitrogen 19 mg/dL (7-17); Calcium 8.8 mg/dL (8.4-10.2); Carbon Dioxide 26 mmol/L (22-32); Chloride 100 mmol/L (98-107); Estimated Glomerular Filt Rate > 60 mL/min (>60); Globulin 2.9 g/dL (1.7-4.1); Glucose 113 mg/dL (70-99); HEMOLYSIS < 15 (0-50); Lipase < 10 U/L (23-300); Potassium 3.5 mmol/L (3.4-5.1); Sodium 136 mmol/L (137-145); Total Protein 6.7 g/dL (6.3-8.2)
[2025-04-24 14:12] LABS: Band Neutrophils Percent 31.0 % (3-7); Eosinophils Percent Manual 1.0 % (2-4); Lymphocytes Percent Manual 3.0 % (25-45); Monocytes Percent Manual 12.0 % (2-11); Neutrophils Absolute Manual 17220 /uL (3000-5900); Segmented Neutrophils Percent 53.0 % (38-70); Total Cells Counted 100
[2025-04-24 14:16] LABS: Anisocytosis 1+
[2025-04-24 17:48] LABS: Ictotest Urine Positive (Negative)
--- NOTE | 2025-04-24 17:51 | DI.CT.S_ITS ---
PROCEDURE: CT ABDOMEN PELVIS WO CON INDICATIONS: duodenal stent blockage TECHNIQUE: CT of the abdomen and pelvis was obtained without intravenous contrast. Coronal and sagittal reformats were performed. For radiation dose reduction, the following was used: automated exposure control, adjustment of mA and/or kV according to patient size. COMPARISON: [facility], CT, CT ABDOMEN PELVIS W CON, 11/26/2024, 9:31. FINDINGS: Image quality: Diagnostic. Lower Chest: No significant findings. ABDOMEN: Liver: No contour-deforming mass. Gallbladder: Significant distension. Biliary ducts: CBD stent is again seen extending to the duodenum. There is new or more prominent, [id number] intrahepatic biliary dilatation. Pancreas: Stable fullness in the region of the head and significant volume loss in the body and tail. Spleen: Size is within normal limits. Adrenal Glands: No adrenal nodules. Kidneys and Ureters: No hydronephrosis. No contour-deforming mass. Stomach and Bowel: Normal colonic caliber, without significant wall thickening. There is severe dilatation of the stomach, more prominent, extending into the pelvis. Duodenal stent is again noted. Peritoneum: No abnormal intraperitoneal fluid. No free air. Ventral Wall: No significant hernia. Abdominal Nodes: No retroperitoneal or mesenteric adenopathy by size criteria. Vessels: Aorta and inferior vena cava are normal in size. PELVIS: Pelvic Organs: Unremarkable. Bladder: Unremarkable. Pelvic Nodes: No enlarged lymph nodes. Miscellaneous: No inguinal hernias are seen. Bones: No aggressive osseous abnormality. IMPRESSION: 1. Findings most suggestive of gastric outlet obstruction due to stenosis in the duodenal stent. 2. There is new significant biliary dilatation, suggestive of malfunction of the CBD stent. 3. No new suspicious focal lesion otherwise on this unenhanced study. Dictated by: Nehemiah Schofield M.D. on 04/24/2025 at 18:09 Approved by: Nehemiah Schofield M.D. on 04/24/2025 at 18:15
[2025-04-24 17:56] LABS: Culture Indicated Urine Specimen Cultured
--- NOTE | 2025-04-24 20:21 | ED.ABDPAIN ---
HPI - Abdominal Pain General Chief Complaint: Abdominal Pain Stated Complaint: Cancer patient, Sent for CT scan, weak Time Seen by Provider: 04/24/25 17:51 Source: patient Mode of arrival: Ambulatory History of Present Illness HPI narrative: 84-year-old female history of moderately severe mitral regurgitation from mitral valve prolapse, dyslipidemia, atrial fibrillationon asa , partial gastric outlet obstruction, history of pancreatic cancer with duodenal stent 2023, and long biliary stent placed complicated by minor perforation back at [facility] in 2023 currently on chemo presents today with nausea, decreased appetite, feeling like she has blocked again came in to be evaluated. Patient denies active chest pain, cough, shortness of breath, leg pain or swelling. Other than what is stated 14 point review of systems negative Related Data Home Medications ?Medication ?Instructions ?Recorded ?Confirmed sennosides 8.6 mg tablet (senna) mg PO 08/10/24 03/07/25 probiotic See Rx Instructions PO .COMPLEX 11/30/24 03/07/25 Previous Rx's ?Medication ?Instructions ?Recorded bwtvae-[id number]-[id number] 2 cap PO TID #120 caps 05/17/24 36,000-114,000-180,000 unit capsule,delay rel (Creon) lidocaine-prilocaine 2.5 %-2.5 % 1 applic topical ONCE #30 grams 11/30/24 topical cream ondansetron 8 mg disintegrating 8 mg PO Q12H PRN nausea and 11/30/24 tablet vomiting #60 tabs omeprazole 40 mg capsule,delayed 40 mg PO BID #180 caps 02/02/25 release lorazepam 0.5 mg tablet 0.5 mg PO DAILY PRN anxiety or 02/06/25 sleep #30 tabs Allergies Allergy/AdvReac Type Severity Reaction Status Date / Time metoclopramide AdvReac Intermediate muscle Verified 04/24/25 13:22 spasms mirtazapine AdvReac Mild Agitated Verified 04/24/25 13:22 Review of Systems Review of Systems ROS Unobtainable: All systems reviewed & are unremarkable except as noted in HPI and below Patient History Medical History (Updated 04/24/25 @ 22:09 by Quang Hinojosa, ) LBBB (left bundle branch block) Moderate protein-calorie malnutrition Anemia due to GI blood loss Generalized anxiety disorder Atrial fibrillation with rapid ventricular response Do not resuscitate Partial gastric outlet obstruction Essential hypertension Mitral regurgitation Mixed hyperlipidemia Pancreatic cancer Social History details: , 3 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 Well-developed patient, in mild distress. HEAD: Atraumatic. Normocephalic. EYES: Pupils equal round and reactive. Extraocular motions intact. No scleral icterus. No injection or drainage. ENT: Nose without bleeding, purulent drainage. Throat without erythema, tonsillar hypertrophy or exudate. Airway patent. NECK: Trachea midline. Non tender CARDIOVASCULAR: Regular rate and rhythm without murmurs, gallops, or rubs. RESPIRATORY: Clear to auscultation. Breath sounds equal bilaterally. No wheezes, rales, or rhonchi. GASTROINTESTINAL: Abdomen soft, non-tender, nondistended. EXTREMITIES: No edema or joint tenderness. BACK: Nontender without deformity or crepitance. No flank tenderness. NEURO: AOx3. SKIN: No rash or erythema of visible areas Initial Vital Signs Initial Vital Signs: Vital Signs Temperature 98.6 F 04/24/25 13:22 Pulse Rate 93 H 04/24/25 13:22 Respiratory Rate 18 04/24/25 13:22 Blood Pressure 122/62 04/24/25 13:22 Pulse Oximetry 99 04/24/25 13:22 Oxygen Delivery Method Room Air 04/24/25 13:22 Course Orders Ordered: ED Orders 04/24/25 13:27 EKG-12 Lead Stat 04/24/25 13:33 Complete Blood Count AUTO DIFF Stat Comprehensive Metabolic Panel Stat Lipase Stat 04/24/25 17:32 Ictotest Urine Stat Urine Culture Stat Urine Microscopic Stat 04/24/25 17:51 CT abdomen pelvis wo con Stat Ondansetron HCl (Ondansetron 4 Mg/2 Ml Inj) 4 mg IV NOW PRN PRN Reason: Nausea And Vomiting Ondansetron HCl (Ondansetron 4 Mg Odt) 4 mg PO NOW PRN PRN Reason: Nausea And Vomiting Vital Signs Vital signs: Vital Signs - 8 hr 04/24/25 17:38 Pulse Rate 72 Respiratory Rate 16 Blood Pressure 112/61 Pulse Oximetry 97 Oxygen Delivery Method Room Air [facility] - Abdominal Pain Lab Data 04/24/25 13:33 04/24/25 13:33 Labs: Lab Results 04/24/25 04/24/25 Range/Units 13:33 17:32 WBC 20.5 H (4.5-11.0) X10^3/uL RBC 3.82 L (4.0-5.2) X10^6/uL Hgb 9.7 L (12.0-16.0) g/dL Hct 30.1 L (36-46) % MCV 78.8 L (80-100) fL MCH 25.3 L (26-34) PG MCHC 32.2 (30-36) % RDW 18.9 H (11.6-14.8) % Plt Count 280 (150-400) X10^3/uL Neut % (Auto) Not Reportable Lymph % (Auto) Not Reportable Mcdonough % (Auto) Not Reportable Eos % (Auto) Not Reportable Baso % (Auto) Not Reportable Lymph # (Auto) Not Reportable Mcdonough # (Auto) Not Reportable Baso # (Auto) Not Reportable Total Counted 100 Seg Neutrophils % 53.0 (38-70) % Band Neutrophils % 31.0 H (3-7) % Lymphocytes % (Manual) 3.0 L (25-45) % Monocytes % (Manual) 12.0 H (2-11) % Eosinophils % (Manual) 1.0 L (2-4) % Neutrophils # (Manual) 63171 H (5264-3665) /uL Platelet Estimate Adequate on smear RBC Morphology See below Anisocytosis 1+ H Sodium 136 L (137-145) mmol/L Potassium 3.5 (3.4-5.1) mmol/L Chloride 100 (98-107) mmol/L Carbon Dioxide 26 (22-32) mmol/L BUN 19 H (7-17) mg/dL Creatinine 0.84 (0.52-1.04) mg/dL Estimated GFR > 60 (>60) mL/min BUN/Creatinine Ratio 22.6 H (6-22) Glucose 113 H (70-99) mg/dL Calcium 8.8 (8.4-10.2) mg/dL Total Bilirubin 3.5 H (0.2-1.3) mg/dL AST 336 H (14-36) IU/L ALT 209 H (<35) IU/L Alkaline Phosphatase 596 H (38-126) U/L Total Protein 6.7 (6.3-8.2) g/dL Albumin 3.8 (3.5-5.0) g/dL Globulin 2.9 (1.7-4.1) g/dL Albumin/Globulin Ratio 1.3 (1.0-2.8) Lipase < 10 L (23-300) U/L Ur Bilirubin Confirm Positive H (Negative) Urine RBC 0-1/hpf (0-5/HPF) Urine WBC 0-1/hpf (0-5/HPF) Ur Squamous Epith Cells 1-5 /hpf (0-5/HPF) Urine Bacteria Occasional (0-1) (None) Urine Mucus 3+ H D (Negative) Ur Culture Indicated? Specimen cultured Vol Urine Centrifuged 10ml (spun) Point of care testing: Urine Dip Bedside Urine Glucose Negative Bedside Urine Bilirubin ++ 2 Bedside Urine Ketone ++ 40 Urine Specific [place] 1.025 Bedside Urine Occult Blood +/- Bedside Urine pH 6.0 Bedside Urine Protein + 30 Bedside Urine Urobilinogen +/- 1mg Bedside Urine Nitrite - Negative Bedside Urine Leukocytes + [address] scan - abdomen/pelvis: Radiologist's Impression: [place] [address] CT Scan Report Signed Patient: Ana Carver MR#: [id number] : 1940 Acct:[id number] Age/Sex: 84 / F Date of Service: 04/24/25 Loc: ED Accession Number: [id number] Procedure: CT abdomen pelvis wo con Ordering Provider: Jay Joseph MD PROCEDURE: CT ABDOMEN PELVIS WO CON INDICATIONS: duodenal stent blockage TECHNIQUE: CT of the abdomen and pelvis was obtained without intravenous contrast. Coronal and sagittal reformats were performed. For radiation dose reduction, the following was used: automated exposure control, adjustment of mA and/or kV according to patient size. COMPARISON: [facility], CT, CT ABDOMEN PELVIS W CON, 11/26/2024, 9:31. FINDINGS: Image quality: Diagnostic. Lower Chest: No significant findings. ABDOMEN: Liver: No contour-deforming mass. Gallbladder: Significant distension. Biliary ducts: CBD stent is again seen extending to the duodenum. There is new or more prominent, [id number] intrahepatic biliary dilatation. Pancreas: Stable fullness in the region of the head and significant volume loss in the body and tail. Spleen: Size is within normal limits. Adrenal Glands: No adrenal nodules. Kidneys and Ureters: No hydronephrosis. No contour-deforming mass. Stomach and Bowel: Normal colonic caliber, without significant wall thickening. There is severe dilatation of the stomach, more prominent, extending into the pelvis. Duodenal stent is again noted. Peritoneum: No abnormal intraperitoneal fluid. No free air. Ventral Wall: No significant hernia. Abdominal Nodes: No retroperitoneal or mesenteric adenopathy by size criteria. Vessels: Aorta and inferior vena cava are normal in size. PELVIS: Pelvic Organs: Unremarkable. Bladder: Unremarkable. Pelvic Nodes: No enlarged lymph nodes. Miscellaneous: No inguinal hernias are seen. Bones: No aggressive osseous abnormality. IMPRESSION: 1. Findings most suggestive of gastric outlet obstruction due to stenosis in the duodenal stent. 2. There is new significant biliary dilatation, suggestive of malfunction of the CBD stent. 3. No new suspicious focal lesion otherwise on this unenhanced study. MDM Narrative Medical decision making narrative: Vital signs,nurse triage note, medication list, previous ER visits, and all imaging study reviewed. White count of 20.5, hemoglobin 9.7, platelet 280 sodium 136 BUN 19 glucose 113 the bili 3 point AST 336 ALT 209 alk-phos 596 lipase less than 10. CT scan showed findings suggestive of gastric outlet obstruction due to stenosis in the duodenal stent. New significant biliary dilatation suggestive. of malfunction of the common bile stent nose new suspicious focal lesions otherwise. Differential diagnosis includes small-bowel obstruction, gastric outlet obstruction, stent stenosis, pancreatic cancer with Mets. Case discussed with Dr. Campos hospitalist who has graciously accepted the patient for inpatient admission at [facility]. Discharge Plan Departure Patient Disposition: [facility] Clinical Impression: Gastric outlet obstruction, Common bile duct obstruction secondary to biliary stent Prescriptions: No Action Creon 36,000-114,000- 180,000 unit capsule,delayed release(DR/EC) 2 cap PO TID Qty: 120 1RF Rx Instructions: administer with meals and/or snacks lorazepam 0.5 mg tablet 0.5 mg PO DAILY PRN (Reason: anxiety or sleep) Qty: 30 3RF sennosides [senna] 8.6 mg tablet PO lidocaine-prilocaine 2.5-2.5 % cream 1 applic topical ONCE Qty: 30 0RF Rx Instructions: Apply large amount to port site prior to port access and cover with clean wrap. ondansetron 8 mg tablet,disintegrating 8 mg PO Q12H PRN (Reason: nausea and vomiting) Qty: 60 0RF probiotic See Rx Instructions PO .COMPLEX Rx Instructions: 5 billion CFU orally; omeprazole 40 mg capsule,delayed release(DR/EC) 40 mg PO BID Qty: 180 3RF Referrals: Fidel Antonio MD [Primary Care Provider, Internal Medicine]
[2025-04-24] MEDS: LACTATED RINGERS 1,000 ML 1000 ML IV (22:25)
[2025-04-25 00:18] VITALS: BP 120/67; PULSE 78; RESP 18; O2SAT 99
== END 2025-04-25 00:24 | disposition short-term general hospital (02) ==
PROVIDERS: Family Medicine; Emergency Provider Family Medicine; PCP Internal Medicine
DX: T85.590A Other mechanical complication of bile duct prosthesis, initial encounter (principal); K31.1 Adult hypertrophic pyloric stenosis; E78.2 Mixed hyperlipidemia
CPT/HCPCS: 36415; 74176; 80053; 81003; 81015; 83690; 85007; 85025; 87086; 93005; 99284